=== PATIENT | female | born 1970 | race Caucasian/White ===

== ENCOUNTER 2016-10-27 15:01 | Inpatient (IN) | payer BC ==
[2016-10-27] MEDS ORDERED: NS 0.9% 1000 ML* 1,000 ML IV ONE (15:50)
--- NOTE | 2016-10-27 16:20 | RAD ---
INDICATION: Cyanosis and swelling after left fourth finger nail fell off. TECHNIQUE: 3 views of the left ring finger were obtained. FINDINGS: The bones are normal alignment. Joint spaces appear maintained. No fracture is seen. Soft tissue swelling at the distal left ring finger is radiographically apparent. IMPRESSION: SOFT TISSUE SWELLING INVOLVING THE DISTAL LEFT RING FINGER WITHOUT ACUTE UNDERLYING BONY ABNORMALITY.
[2016-10-27] MEDS ORDERED: Vancomycin(*) 1,000 MG in NS 0.9% 250 ML* 250 ML IVPB ONE (17:09)
[2016-10-27 17:10] LABS: Hematocrit 37 % (35-47); Hemoglobin 12.3 g/dl (12.0-16.0); Mean Corpuscular HGB Conc 33 g/dl (31-36); Mean Corpuscular Hemoglobin 29 pg (27-31); Mean Corpuscular Volume 88 fL (80-97); Mean Platelet Volume 9 um3 (7.4-10.4); Red Blood Count 4.19 10^6/ul (4.0-5.4); Red Cell Distribution Width 12 % (10.5-15); White Blood Count 13.1 10^3/ul (3.5-10.8)
[2016-10-27] MEDS ORDERED: Morphine INJ* 4 MG/ML 1 ML CARPUJECT IV ONE (17:23)
[2016-10-27 17:29] LABS: Albumin 3.7 g/dL (3.2-5.2); BUN/Creatinine Ratio 18.8 (8-20); Calcium 9.2 mg/dL (8.6-10.3); EGFR African American 180.7 (>60); EGFR Non-African American 140.5 (>60); Globulin 3.2 g/dL (2-4); Potassium 3.7 mmol/L (3.5-5.0); Total Bilirubin 0.5 mg/dL (0.2-1.0); Total Protein 6.9 g/dL (6.4-8.9)
[2016-10-27] MEDS ORDERED: Ciprofloxacin 400MG IVPREMIX(* 400 MG/200 ML BAG IVPB ONE (18:00)
--- NOTE | 2016-10-27 18:49 | ED ---
Seamus Rea Adam, scribed for Татьяна Singleton MD on 10/27/16 at 1525 . Upper Extremity Pain - HPI Summary HPI Summary: Pt is a 45 year old female presenting with swelling of her left ring finger. She was taking injections 4x daily to keep blood sugar up and she states that this caused her fingernail to fall off about 1 month ago. 3 days ago she states that the finger became swollen and pink around the nail bed. Over the past 2 days she has become unable to straighten the fingers of her left hand. She has diffuse pain in the hand but she states that she does not have any feeling in the affected finger due to neuroapthy. Yesterday she had an X-ray done at [facility] and had an infectious disease MD jono and swab. She was told to come to the ED today because yesterday's results came back concerning. PMHx of severe hypoglycemia s/p gastric bypass surgery. - History of Current Complaint Chief Complaint: EDExtremityUpper Stated Complaint: LT HAND SWELLING Hx Obtained From: Patient Onset/Duration: Started Days Ago, Atraumatic, Still Present Timing: Constant, Lasting Days Severity Initially: Mild Severity Currently: Moderate Pain Location: Finger - Left ring finger Aggravating Factor(s): Nothing Alleviating Factor(s): Nothing Associated Signs & Symptoms: Positive: Swelling, Numbness/Tingling - Allergies/Home Medications Allergies/Adverse Reactions: Allergies Allergy/AdvReac Type Severity Reaction Status Date / Time Amoxicillin [From Augmentin] Allergy Vomiting Verified 10/27/16 15:07 Clavulanic Acid Allergy Vomiting Verified 10/27/16 15:07 [From Augmentin] Codeine Allergy HALLUCINATIONS, Verified 10/27/16 15:07 VOMITING, FEVER Oxycodone Allergy Dizziness Verified 10/27/16 15:07 Sulfamethoxazole Allergy Hives Verified 10/27/16 15:07 w/Trimethoprim [From Septra] MRI CONTRAST Allergy RINGING IN Uncoded 10/27/16 15:07 EARS, DIFF BREATHING Home Medications: Home Medications Calcium Carbonate-Vitamin D [Calcium 600 + D] 1 tab PO QAM 10/27/16 [History Confirmed 10/27/16] DULoxetine DR CAP* [Cymbalta CAP*] 60 mg PO QAM 10/27/16 [History Confirmed ] Gabapentin CAP(*) [Neurontin 300 CAP(*)] 300 mg PO QAM 10/27/16 [History Confirmed 10/27/16] Gabapentin CAP(*) [Neurontin 300 CAP(*)] 900 mg PO QPM 10/27/16 [History Confirmed 10/27/16] Levothyroxine TAB* [Synthroid TAB*] 200 mcg PO DAILY 10/27/16 [History Confirmed 10/27/16] Omeprazole CAP* [PriLOSEC CAP*] 20 mg PO DAILY PRN 10/27/16 [History Confirmed 10/27/16] PMH/Surg Hx/FS Hx/Imm Hx Endocrine/Hematology History: Reports: Hx Thyroid Disease - HYPOTHYROID Denies: Hx Diabetes Cardiovascular History: Denies: Hx Congestive Heart Failure, Hx Hypertension, Hx Pacemaker/ICD, Other Cardiovascular Problems/Disorders Respiratory History: Reports: Hx Asthma - UNDER CONTROL, NO INHALER RECENTLY Denies: Other Respiratory Problems/Disorders GI History: Reports: Hx Gastroesophageal Reflux Disease - DIET CONTROLLED, TUMS PRN, Other GI Disorders - reccurent internal hernia History: Denies: Hx Renal Disease Sensory History: Denies: Hx Contacts or Glasses, Hx Hearing Aid Opthamlomology History: Denies: Hx Contacts or Glasses Neurological History: Reports: Other Neuro Impairments/Disorders - HX OF CHIARI MALFORMATION Psychiatric History: Denies: Hx Panic Disorder - Surgical History Surgery Procedure, Year, and Place: GASTRIC BYPASS, X2, POSTERIOR FOSSA DECOMPRESSION FRO CHIARI MALFORMATION, ULAR NERVE, CARPAL TUNNEL BILATERAL , BICEP TENDON/ROTATOR CUFF REPAIR,UTERINE ABLATION, TUBAL LIGATION Hx Anesthesia Reactions: No Infectious Disease History: No Infectious Disease History: Denies: Traveled Outside the [place] in Last 30 Days - Family History Known Family History: Positive: None - reviewed & noncontributory - Social History Occupation: Employed Full-time Lives: With Family - Alcohol Use: None Hx Substance Use: No Substance Use Type: Reports: None Hx Tobacco Use: No Smoking Status (MU): Never Smoked Tobacco Review of Systems Negative: Fever Positive: Edema - Left ring finger Positive: Numbness - Fingers of left hand (chronic neuropathy) All Other Systems Reviewed And Are Negative: Yes Physical Exam Triage Information Reviewed: Yes Vital Signs On Initial Exam: Initial Vitals Temp Pulse Resp BP Pulse Ox 98.4 F 76 16 112/60 100 10/27/16 15:07 10/27/16 15:07 10/27/16 15:07 10/27/16 15:07 10/27/16 15:07 Vital Signs Reviewed: Yes Appearance: Positive: Well-Appearing, No Pain Distress Skin: Positive: Warm, Skin Color Reflects Adequate Perfusion, Dry Eyes: Positive: EOMI, SELWYN ENT: Positive: Pharynx normal, TMs normal Neck: Positive: Supple, Nontender Respiratory/Lung Sounds: Positive: Clear to Auscultation, Breath Sounds Present. Negative: Rales, Rhonchi, Wheezes Cardiovascular: Positive: RRR. Negative: Murmur, Rub Abdomen Description: Positive: Nontender, Soft. Negative: Distended, Guarding Bowel Sounds: Positive: Present Musculoskeletal: Positive: Other - Left ring finger - "sausage finger" Neurological: Positive: Sensory/Motor Intact, Alert, Oriented to Person Place, Time, CN Intact II-III Psychiatric: Positive: Affect/Mood Appropriate Diagnostics - Vital Signs Vital Signs Temp Pulse Resp BP Pulse Ox 10/27/16 15:07 98.4 F 76 16 112/60 100 - Laboratory Lab Results: Lab Results 10/27/16 10/27/16 10/27/16 Range/Units 16:55 16:55 16:55 WBC 13.1 H (3.5-10.8) 10^3/ul RBC 4.19 (4.0-5.4) 10^6/ul Hgb 12.3 (12.0-16.0) g/dl Hct 37 (35-47) % MCV 88 (80-97) fL MCH 29 (27-31) pg MCHC 33 (31-36) g/dl RDW 12 (10.5-15) % Plt Count 217 (150-450) 10^3/ul MPV 9 (7.4-10.4) um3 Neut % (Auto) 83.9 H (38-83) % Lymph % (Auto) 8.3 L (25-47) % [place] % (Auto) 6.8 (1-9) % Eos % (Auto) 0.4 (0-6) % Baso % (Auto) 0.6 (0-2) % Absolute Neuts (auto) 11.0 H (1.5-7.7) 10^3/ul Absolute Lymphs (auto) 1.1 (1.0-4.8) 10^3/ul Absolute Monos (auto) 0.9 H (0-0.8) 10^3/ul Absolute Eos (auto) 0 (0-0.6) 10^3/ul Absolute Basos (auto) 0.1 (0-0.2) 10^3/ul Absolute Nucleated RBC 0.01 10^3/ul Nucleated RBC % 0 Sodium 138 (133-145) mmol/L Potassium 3.7 (3.5-5.0) mmol/L Chloride 107 (101-111) mmol/L Carbon Dioxide 28 (22-32) mmol/L Anion Gap 3 (2-11) mmol/L BUN 9 (6-24) mg/dL Creatinine 0.48 L (0.51-0.95) mg/dL Est GFR ( Amer) 180.7 (>60) Est GFR (Non-Af Amer) 140.5 (>60) BUN/Creatinine Ratio 18.8 (8-20) Glucose 92 (70-100) mg/dL Lactic Acid 0.6 (0.5-2.0) mmol/L Calcium 9.2 (8.6-10.3) mg/dL Total Bilirubin 0.50 (0.2-1.0) mg/dL AST 19 (13-39) U/L ALT 15 (7-52) U/L Alkaline Phosphatase 43 (34-104) U/L Total Protein 6.9 (6.4-8.9) g/dL Albumin 3.7 (3.2-5.2) g/dL Globulin 3.2 (2-4) g/dL Albumin/Globulin Ratio 1.2 (1-3) Result Diagrams: 10/27/16 16:55 10/27/16 16:55 Lab Statement: Any lab studies that have been ordered have been reviewed, and results considered in the medical decision making process. - Radiology LEFT RING FINGER X-RAY Radiology Interpretation Completed By: Radiologist - IMPRESSION: SOFT TISSUE SWELLING INVOLVING THE DISTAL LEFT RING FINGER WITHOUT ACUTE UNDERLYING BONY ABNORMALITY. Course/Dx - Course Course Of Treatment: 45 yo with classic flexor tenosynovitis of left ring finger. Xray shows osteo of distal phalanx, IV abx started in ED vanco and cipro. Pt seen by orthopedist and admitted by hospitalist - Diagnoses Provider Diagnoses: Flexor tenosynovitis of finger - Physician Notifications Discussed Care Of Patient With: Hospitalist at 16:43. Discharge - Discharge Plan Condition: Stable Disposition: ADMITTED TO [facility] The documentation as recorded by the Seamus valdez Adam accurately reflects the service I personally performed and the decisions made by me, Татьяна Singleton MD.
[2016-10-27] MEDS ORDERED: Omeprazole CAP* 20 MG PO PRN (18:52)
[2016-10-27] MEDS ORDERED: Vancomycin per Pharmacy* NOTE FOLLOW UP PRN (19:43)
--- NOTE | 2016-10-27 21:26 | CONS ---
ORTHOPEDIC CONSULTATION: DATE OF CONSULT: 10/27/16 CHIEF COMPLAINT: Left ring finger pain. HISTORY OF PRESENT ILLNESS: Ms. Mosquera is a 45-year-old right hand dominant female with a history of Arnold-Chiari malformation and upper extremity neuropathy. She reports she has decreased sensation in her fingers and hand. One week ago she noticed abrasion or open wound along the tip of her ring finger of her left hand. Over the last week, this has become increasingly red and painful. She reports although she has decreased sensation, she does have 4/ 10 pain in the left ring finger with difficulty extending it. Any attempt to move the finger increases her pain. Small amount of pus was expressed at some point over the last week. She reports she saw an infectious disease doctor in [place] who attempted to I and D the tip of the finger, but there was no purulence expressed. The patient has been taking oral antibiotics, but does not know the type. She has had low-grade fever around 100. She reports aching in her hips and other joints as well. 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 PAST SURGICAL HISTORY: Posterior fossa decompression of the cervical spine for Arnold-Chiari malformation, tubal ligation, uterine ablation, carpal tunnel release, and ulnar nerve transposition, 2 C-sections, Errol-en-Y gastric bypass in 2011. CURRENT MEDICATIONS: 1. Levothyroxine. 2. Vitamin. 3. Sublingual B12. 4. Calcium and vitamin D. ALLERGIES: SEASONAL allergies, CATS, and DOGS. CODEINE, AUGMENTIN, MRI CONTRAST, PERCOCET, and OXYCODONE. FAMILY HISTORY: The patient denies. SOCIAL HISTORY: The patient lives with her , works as a ready mix truck driver. No tobacco, alcohol, or recreational drug use. REVIEW OF SYSTEMS: The 14 systems were reviewed with the patient today, positive for the left hand pain and erythema, positive for recent low-grade fevers, positive for some fatigue, and bilateral hip pain. Negative for chest pain, shortness of breath, nausea, vomiting, headache or dizziness. Otherwise, the patient reports review of systems is negative or not relevant. PHYSICAL EXAM: Vitals: Temperature 98.4, pulse 76, blood pressure 112/60. General: The patient is a well-nourished female in no acute distress. Alert and oriented x3. Please mood and appropriate affect. Left upper extremity: The patient's ring finger is swollen and erythematous up to the MCP joint. The finger is flexed. She cannot fully extend it. At the tip there is ecchymotic dark blue/black up to the DIP joint, unclear if this is necrosis or subcutaneous bleeding. No obvious purulence or drainage. She reports baseline decreased sensation to light touch. Less than 3 seconds capillary refill near the tip. Greater than 3 seconds capillary refill right at the tip of the finger. Proximally she has pain-free motion at the wrist with 2+ palpable radial pulse. DIAGNOSTIC STUDIES/LAB DATA: On 10/27/16 shows white blood cells elevated at 13.1 with a left shift neutrophils, hematocrit 37, platelets 217. Sodium 138, potassium 3.7, chloride 107, BUN and creatinine 9 and 0.48. RADIOGRAPHS: I have reviewed the left hand radiograph, which shows some abnormality of the distal phalanx bone consistent with possible osteomyelitis. No obvious fracture or dislocation. ASSESSMENT AND PLAN: Ms. Mosquera is a 45-year-old right-hand dominant female with bilaterally upper extremity neuropathy secondary to Arnold-Chiari malformation. She has 1 week of increasingly severe infection in the left ring finger up to the MCP joint today. Her tip appears to be necrotic. At this point, the patient is admitted to Medicine and should certainly have broad- spectrum IV antibiotics. We will consider an MRI of that finger to more fully elucidate the extent of fluid collections and soft tissue/bone involvement. The patient can have warm soaks twice a day for the finger. I have contacted our hand specialist, Dr. Becki Leonard, who agrees to see the patient on 10/28/16. I discussed with the patient today that she may need surgical drainage of the infection and she may have necrosis of the finger tip requiring a finger tip amputation. The patient understands this. She should have p.r.n. analgesia. Thank you for this orthopedic consultation. [id number]/[facility] #: [id number] MTDD
[2016-10-27] MEDS: Cefepime(*) 2 GM in NS 0.9% 50 ML* 50 ML IVPB SCH (21:36)
[2016-10-27] MEDS ORDERED: HYDROcodone/ACETAMIN 5-325 MG* 1 TAB PO PRN ×2 (21:50→21:51)
--- NOTE | 2016-10-27 22:17 | HP ---
HISTORY AND PHYSICAL: DATE OF ADMISSION: 10/27/16 PRIMARY CARE PROVIDER: MARLON Bah. ATTENDING PHYSICIAN: Scott Flood MD *(dictated by Shaista Camp NP). CHIEF COMPLAINT: Left hand swelling. HISTORY OF PRESENT ILLNESS: Ms. Mosquera is a 45-year-old female with a past medical history significant for Arnold-Chiari malformation with neuropathy, Kanchan's thyroiditis, hypoglycemia and restless leg syndrome who presented to the emergency room with complaints of left ring finger swelling. The patient reports that in the past she has been taking injections 4 times a day to keep her blood sugars elevated due to hypoglycemia and this had started to cause her fingernails to fall off and be brittle. The patient reports that approximately 1 month ago she lost her left ring fingernail. The patient states that approximately a week ago, she "pulled a hangnail" from near where the nail had fallen off on her left ring finger. The patient then noticed approximately 3 days ago that her finger had become swollen and slightly pink around the nail bed. The patient reports that over the last 2 days she has been unable to straighten her fingers on her left hand. The patient reports some discomfort in the left hand and has noticed some redness kind of going up her arm and on to the backside of her hand. The patient reports a decreased feeling in her affected finger due to neuropathy from her Arnold-Chiari. The patient reports being seen yesterday by her primary care provider who started her on Keflex and had her see infectious disease specialist in [place]. The infectious disease specialist at [place] attempted to aspirate some fluid and started her on doxycycline. The patient reports taking 2 doses of doxycycline and Keflex since she was started on it. The patient also reports having an x- ray done yesterday at [facility]. The patient returned to her primary care provider today who sent her to see a hand specialist to remove her rings as they were unable to be removed. Her rings were removed and the patient saw her primary care provider again who sent her to [facility] Emergency Room for further evaluation. The patient was then sent from [facility] to [facility] to be able to be seen by a hand specialist. The patient reports low-grade fevers, reporting her temperature as being 99 to 100.6. The patient reports intermittent chills over the weekend. The patient notes baseline numbness and tingling with decreased sensation in her bilateral extremities, worse in the left than the right. The patient denies any chest pain, shortness of breath, nausea, vomiting, diarrhea, abdominal pain, urinary symptoms. While in the [facility] Emergency Room, the patient received IV vancomycin and ciprofloxacin. The patient received 1 L of normal saline. She received morphine for pain. The patient was seen by Dr. Bailey with Orthopedics. The patient had a left ring finger x-ray showing a soft tissue swelling involving the distal left ring finger without acute underlying bony abnormalities. Based off the patient's presentation, the hospitalists were asked to evaluate the patient for admission. PAST MEDICAL HISTORY: 1. Kanchan's thyroiditis. 2. Arnold-Chiari malformation with neuropathy. 3. Hypoglycemia. 4. Restless leg syndrome. 5. Gastroesophageal reflux disease. PAST SURGICAL HISTORY: 1. Status post left ulnar nerve decompression. 2. Status post internal hernia repairs x2. 3. Status post carpal tunnel repair bilateral. 4. Status post 2 sections. 5. Status post posterior fossa decompression of the C-spine. 6. Status post tubal ligation in 2008. 7. Status post uterine ablation. 8. Status post Errol-en-Y gastric bypass in 2011. HOME MEDICATIONS: Include: 1. Cymbalta 60 mg oral daily. 2. Glucosamine and chondroitin 1 tablet oral daily. 3. Calcium carbonate/vitamin D 600 plus D 1 tablet oral daily. 4. Neurontin 300 mg oral every morning. 5. Neurontin 90 mg oral every evening. 6. Vitamin B12 at 500 mcg sublingual daily. 7. Omeprazole 20 mg oral daily as needed for indigestion. 8. Levothyroxine 200 mcg oral daily. 9. Multivitamin 1 tablet oral daily. 10. Acidophilus 1 tablet oral daily. FAMILY HISTORY: The patient's father had a history of myocardial infarction and diabetes mellitus. The patient has a sister with a history of diabetes mellitus. The patient's mother passed of lung cancer that had metastasized to the bones. SOCIAL HISTORY: The patient denies tobacco, alcohol or recreational drug use. She works as a billing spec. She is and has 2 children. Her surrogate decision maker will be her , Lance Mosquera, in the event that she is unable to make decisions for herself. REVIEW OF SYSTEMS: I performed a 14-point review of systems. All the pertinent positives and negatives are mentioned in the history of present illness. The remaining review of systems are negative. PHYSICAL EXAMINATION GENERAL APPEARANCE: The patient is alert, pleasant, appears to be in no acute distress. VITAL SIGNS: Temperature 98.4, heart rate 76, respiratory rate 16, O2 sat 100% on room air, blood pressure 112/60. HEENT: Normocephalic, atraumatic. Pupils are equal, round, and reactive to light. Extraocular movements are intact. RESPIRATORY: There is no accessory muscle use and the lungs are clear to auscultation bilateral. CARDIOVASCULAR: Regular rate and rhythm. S1, S2 present. There are no murmurs , rubs, or gallops heard. ABDOMEN: Soft, nontender, nondistended. There are bowel sounds present x4. EXTREMITIES: There is no lower extremity edema. DP and PT pulses are 2+ and symmetric. The left ring finger has a large amount of swelling with erythema, and the end of the left ring finger has some areas that appear to be necrotic. There is also some swelling and erythema to the dorsal aspect of the left hand. MUSCULOSKELETAL: There is no clubbing or cyanosis noted. The patient exhibits good strength in all extremities. NEUROLOGICAL: The patient is alert and oriented x4. Cranial nerves II through XII are grossly intact. PSYCHOLOGIC: The patient is calm and cooperative. SKIN: Again the patient has erythema and swelling to her left ring finger with some area that appears to be necrotic tissue at the end of her finger. DIAGNOSTIC STUDIES/LABORATORY DATA: Sodium 138, potassium 3.7, chloride 107, CO2 of 28, BUN 9, creatinine 0.48, glucose 92. White blood cell count 13.1, hemoglobin 12.3, hematocrit 37, and platelet count 217. Left ring finger x-ray from today. Radiologist's impression: Soft tissue swelling involving the distal left ring finger without acute underlying bony abnormality. IMPRESSION: Ms. Mosquera is a 45-year-old female with past medical history significant for Arnold-Chiari malformation with neuropathy, Kanchan's thyroiditis, hypoglycemia and restless leg syndrome who presented to the emergency room with left ring finger swelling and erythema. She will be admitted as an inpatient for flexor tenosynovitis of the left ring finger. ASSESSMENT: 1. Tenosynovitis. The patient has been seen in consultation by Orthopedics. She will be seen again by Dr. Leonard in the morning. For now, the patient will be started on vancomycin and cefepime. The patient has had blood cultures collected. We will monitor her CBC and leukocytosis. At this point, the patient is afebrile. I will also ask Infectious Disease to see the patient in the a.m. She will have warm water soaks of the left hand twice daily. Dr. Leonard will see the patient in the morning and evaluate the need for incision and drainage vs amputation. 2. Arnold-Chiari malformation with neuropathy. The patient will be continued on her home pain regimen including Cymbalta and Neurontin. 3. Kanchan's thyroiditis. The patient will be continued on her levothyroxine. 4. Fluids, electrolytes and nutrition: The patient will be on a regular diet. 5. Code status: Full code. 6. DVT prophylaxis: The patient is at a low risk and will be encouraged to ambulate. 7. Disposition: Inpatient. TIME SPENT: The time for this admission was 60 minutes, and 35 minutes was spent [id number] with the patient discussing medications, past medical history , and the events leading up to her arrival today and performing a physical examination. The case has been reviewed with the attending, Dr. Flood, who agrees with the plan of care. Reviewed by AMANDA ZENDEJAS 10/28/162000 CC: MARLON Bah * [id number]/[facility] #: [id number] MTDD
[2016-10-28] MEDS ORDERED: Ondansetron INJ* 2 MG/ML VIAL IV PRN (00:04)
[2016-10-28] MEDS ORDERED: Ondansetron INJ* 2 MG/ML VIAL ONE (00:15)
[2016-10-28] MEDS: Vancomycin(*) 1,000 MG in NS 0.9% 250 ML* 250 ML IVPB SCH ×3 (03:52→21:37)
[2016-10-28] MEDS: Levothyroxine TAB* 100 MCG TAB PO SCH (05:34)
[2016-10-28] MEDS: Acetaminophen TAB* 325 MG PO PRN ×3 (05:37→18:34)
[2016-10-28 07:10] LABS: Hematocrit 36 % (35-47); Mean Corpuscular HGB Conc 33 g/dl (31-36); Mean Corpuscular Hemoglobin 30 pg (27-31); Mean Corpuscular Volume 90 fL (80-97); Mean Platelet Volume 9 um3 (7.4-10.4); Red Blood Count 4.02 10^6/ul (4.0-5.4); Red Cell Distribution Width 12 % (10.5-15); White Blood Count 10.7 10^3/ul (3.5-10.8)
--- NOTE | 2016-10-28 08:03 | PN ---
Progress Note - Progress Note SOAP: Subjective: Pt. reports finger is largely unchanged, minimal pain secondary to baseline neuropathy. Objective: LUE - ring finger erythema and swollen to MCP joint. No visible streaking up palm or forearm. pain with extension of finger. distal tip appears to be necrotic. Vital Signs: Temp Pulse Resp BP Pulse Ox 98.3 F 58 16 82/41 100 10/28/16 07:18 10/28/16 07:18 10/28/16 07:18 10/28/16 07:18 10/28/16 07:18 Laboratory Results - last 24 hr 10/27/16 10/27/16 10/27/16 16:55 16:55 16:55 WBC 13.1 H RBC 4.19 Hgb 12.3 Hct 37 MCV 88 MCH 29 MCHC 33 RDW 12 Plt Count 217 MPV 9 Neut % (Auto) 83.9 H Lymph % (Auto) 8.3 L [place] % (Auto) 6.8 Eos % (Auto) 0.4 Baso % (Auto) 0.6 Absolute Neuts (auto) 11.0 H Absolute Lymphs (auto) 1.1 Absolute Monos (auto) 0.9 H Absolute Eos (auto) 0 Absolute Basos (auto) 0.1 Absolute Nucleated RBC 0.01 Nucleated RBC % 0 Sodium 138 Potassium 3.7 Chloride 107 Carbon Dioxide 28 Anion Gap 3 BUN 9 Creatinine 0.48 L Est GFR ( Amer) 180.7 Est GFR (Non-Af Amer) 140.5 BUN/Creatinine Ratio 18.8 Glucose 92 POC Glucose (mg/dL) Lactic Acid 0.6 Calcium 9.2 Total Bilirubin 0.50 AST 19 ALT 15 Alkaline Phosphatase 43 Total Protein 6.9 Albumin 3.7 Globulin 3.2 Albumin/Globulin Ratio 1.2 10/27/16 10/28/16 22:07 06:40 WBC 10.7 RBC 4.02 Hgb 12.0 Hct 36 MCV 90 MCH 30 MCHC 33 RDW 12 Plt Count 208 MPV 9 Neut % (Auto) 80.5 Lymph % (Auto) 11.0 L [place] % (Auto) 7.1 Eos % (Auto) 1.1 Baso % (Auto) 0.3 Absolute Neuts (auto) 8.6 H Absolute Lymphs (auto) 1.2 Absolute Monos (auto) 0.8 Absolute Eos (auto) 0.1 Absolute Basos (auto) 0 Absolute Nucleated RBC 0 Nucleated RBC % 0 Sodium Potassium Chloride Carbon Dioxide Anion Gap BUN Creatinine Est GFR ( Amer) Est GFR (Non-Af Amer) BUN/Creatinine Ratio Glucose POC Glucose (mg/dL) 127 H Lactic Acid Calcium Total Bilirubin AST ALT Alkaline Phosphatase Total Protein Albumin Globulin Albumin/Globulin Ratio Assessment: 45 yo F with one week of worsening L ring finger infection. Plan: Cont. IV abx - cefipime and vanco MRI ordered this AM warm soaks Dr. Leonard to see the patient today, will decide on surgical I and D +/- amputation
[2016-10-28] MEDS: Calcium/Vitamin D TAB 250/125* TAB PO SCH (08:12)
[2016-10-28] MEDS: Cefepime(*) 2 GM in NS 0.9% 50 ML* 50 ML IVPB SCH ×2 (08:12→20:16)
[2016-10-28] MEDS: Multivitamins/Minerals TAB PO SCH (08:13)
[2016-10-28] MEDS: Gabapentin CAP(*) 300 MG PO SCH ×2 (08:13→18:34)
[2016-10-28] MEDS: Cyanocobalamin TAB* 500 MCG PO SCH (08:14)
[2016-10-28] MEDS: DULoxetine DR CAP* 60 MG CAP.DR PO SCH (08:25)
--- NOTE | 2016-10-28 12:01 | RAD ---
Indication: Chronic distal tip of LEFT fourth finger. Assess for osteomyelitis/extent of necrosis. Comparison: October 27, 2016 radiographs. Technique: Noncontrast MRI LEFT fourth finger with inclusion of the adjacent fingers in the [id number]. [employer] 1.5 Caron [id number] with GEM suite. Report: Edematous nailbed and subjacent 1.1 cm AP by 1.3 cm transverse by 2.0 cm cephalocaudal sharply circumscribed T2 hyperintense T1 hypointense fluid collection intervening between the edematous nail bed and the surface of the distal phalanx from the base through the tip. More infiltrative pattern of fluid extends dorsal to the extensor tendons at the level of the middle phalanx. Suggestion of potential ulceration of the soft tissues at the dorsal distal margin. Marked diffuse edema of the fourth finger. No additional loculated fluid collection evident. Small volume of fluid within the extensor and flexor tendon sheaths. T2 hyperintense marrow edema within the middle and distal phalanges. Corresponding decrease in T1 marrow hyperintensity at the distal phalanx but not the middle phalanx. Suggestion of osseous erosions at the tuft of the distal phalanx. IMPRESSION: The constellation of findings is consistent with osteomyelitis at the fourth distal phalanx. Less specific signal change at the middle phalanx which may reflect reactive edema or early osteomyelitis. Extensive findings of cellulitis with loculated probable abscess collection over the dorsum of the distal finger at level of the distal phalanx.
--- NOTE | 2016-10-28 13:44 | CONS ---
CONSULTATION REPORT: DATE OF CONSULT: 10/28/16 CHIEF COMPLAINT: Swelling, redness, and pain of the left ring finger. 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 She has gradually had marked increase in the swelling, erythema, pain, and some necrosis at the tip of the finger that has extended proximal to the DIP flexion crease. She had an MRI done, which showed osteomyelitis of the distal phalanx and fluid in the flexor tendon sheath. She does have a history of skin changes in the tips of all of her fingers. She does not recall any specific injury. PHYSICAL EXAMINATION: On physical exam, she is a healthy-appearing very pleasant female, in mild distress at rest. She has some moderate swelling across the dorsum in the palmar surface of her hand, marked erythema extending on the ring finger only, marked swelling of the ring finger as well as tenderness along the flexor tendon sheath, necrosis with blisters extending from the tip of the finger to just proximal to the DIP flexion crease. She has active flexion and extension of the finger. IMPRESSION: Osteomyelitis of the left ring finger with flexor tenosynovitis. PLAN/RECOMMENDATIONS: Irrigation and debridement and partial amputation of the left ring finger. The patient agrees to proceed. She will be n.p.o. and we will take her to the operating room later this afternoon. [id number]/[facility] #: [id number] MTDD
--- NOTE | 2016-10-28 14:33 | PN ---
Subjective Date of Service: 10/28/16 Interval History: Patient seen and examined at bedside. Pt states that she has a dull headache and pain in her left hand. Denies shortness of breath, chest discomfort, N/V/D. Pt reports feeling intermittent chills and fevers. Pt feels that her finger is more swollen today, but the redness in her left hand is improved. Family History: Unchanged from Admission Social History: Unchanged from Admission Past Medical History: Unchanged from Admission Objective Active Medications: Acetaminophen (Tylenol Tab*) 650 mg PO Q4H PRN Reason: FEVER/PAIN Hydrocodone Bitart/Acetaminophen (Benton 5-325 Tab*) 1 tab PO Q4H PRN Reason: PAIN - MILD TO MODERATE Hydrocodone Bitart/Acetaminophen (Benton 5-325 Tab*) 2 tab PO Q4H PRN Reason: PAIN - MODERATE TO SEVERE Calcium/Vitamin D (Oscal D Tab 250/125*) 2 tab PO QAM OMAR Cyanocobalamin (Vitamin B12 Tab*) 500 mcg PO DAILY OMAR Duloxetine HCl (Cymbalta Cap*) 60 mg PO QAM OMAR Gabapentin (Neurontin Cap(*)) 300 mg PO QAM OMAR Gabapentin (Neurontin Cap(*)) 900 mg PO QPM OMAR Cefepime HCl 2 gm/ Sodium (Chloride) 50 mls @ 100 mls/hr IVPB Q12H OMAR Vancomycin HCl 1,000 mg/ (Sodium Chloride) 250 mls @ 166.667 mls/hr IVPB Q8H OMAR Reason: Protocol Lactated Ringer's (Lactated Ringers 1000 Ml Bag*) 1,000 mls @ 80 mls/hr IV PER RATE OMAR Levothyroxine Sodium (Synthroid Tab*) 200 mcg PO 0600 OMAR Multivitamins/Minerals (Theragran/Minerals Tab*) 1 tab PO DAILY OMAR Omeprazole (Prilosec Cap*) 20 mg PO DAILY PRN Reason: INDIGESTION Ondansetron HCl (Zofran Inj*) 4 mg IV Q4H PRN Reason: NAUSEA Pharmacy Consult (Vancomycin Per Pharmacy*) 1 note FOLLOW UP . PRN Pharmacy Profile Note (Vancomycin Trough Check) 1 note FOLLOW UP 1930 ONE Vital Signs 10/27/16 10/27/16 10/27/16 18:30 18:43 19:00 Temperature Pulse Rate 65 68 Respiratory 18 Rate Blood Pressure 114/70 116/60 (mmHg) O2 Sat by Pulse 98 99 Oximetry 10/27/16 10/27/16 10/27/16 19:30 20:00 20:01 Temperature Pulse Rate 75 72 74 Respiratory Rate Blood Pressure 107/64 107/57 (mmHg) O2 Sat by Pulse 99 100 99 Oximetry 10/27/16 10/27/16 10/27/16 20:30 21:13 21:19 Temperature 99.1 F 100.3 F Pulse Rate 73 90 Respiratory 16 Rate Blood Pressure 109/64 104/54 (mmHg) O2 Sat by Pulse 100 100 Oximetry 10/27/16 10/27/16 10/27/16 21:40 21:43 23:03 Temperature 99.1 F Pulse Rate 90 Respiratory 16 17 16 Rate Blood Pressure 104/54 (mmHg) O2 Sat by Pulse 100 Oximetry 10/27/16 10/28/16 10/28/16 23:45 01:03 03:06 Temperature 98.4 F 97.9 F Pulse Rate 77 69 Respiratory 18 16 14 Rate Blood Pressure 102/51 97/53 (mmHg) O2 Sat by Pulse 97 99 Oximetry 10/28/16 10/28/16 10/28/16 07:18 08:05 08:13 Temperature 98.3 F Pulse Rate 58 Respiratory 16 16 16 Rate Blood Pressure 82/41 (mmHg) O2 Sat by Pulse 100 Oximetry 10/28/16 10/28/16 10:13 11:55 Temperature 97.9 F Pulse Rate 70 Respiratory 16 16 Rate Blood Pressure 116/59 (mmHg) O2 Sat by Pulse 100 Oximetry Oxygen Devices in Use Now: None Appearance: NAD, laying in bed Eyes: No Scleral Icterus, PERRLA Ears/Nose/Mouth/Throat: NL Teeth, Lips, Gums, Mucous Membranes Moist Neck: NL Appearance and Movements; NL JVP, Trachea Midline Respiratory: Symmetrical Chest Expansion and Respiratory Effort, Clear to Auscultation Cardiovascular: NL Sounds; No Murmurs; No JVD, RRR Abdominal: NL Sounds; No Tenderness; No Distention Extremities: No Edema - in LE Skin: - - Left ring finger with swelling and erythma, there is necrosis to the finger tip. Some erythema and swelling on the dorsal aspect of the hand Neurological: Alert and Oriented x 3, NL Muscle Strength and Tone Lines/Tubes/Other Access: Clean, Dry and Intact Peripheral IV - site benign Nutrition: Taking PO's Result Diagrams: 10/28/16 06:40 10/27/16 16:55 Assess/Plan/Problems-Billing Assessment: Ms. Mosquera is a 45 yo female with PMH significant for Arnold-Chiari malformation with neuropathy, Kanchan's thyroiditis, hypoglycemia and RLS who presented to the emergency room with left ring finger swelling and erythema. - Patient Problems (1) Osteomyelitis of finger of left hand Code(s): M86.9 - OSTEOMYELITIS, UNSPECIFIED SNOMED Code(s): 12321585 Comment: - Osteomyelitis with tenosynovitis of the left ring finger - MRI shows Osteomyelitits - Leukocytosis resolved. Afebrile with the exception of a low grade fever 100.3 last night. - Plan for sugery later today with a possible amputation - Continue Vanco and Cefepime - ID consult (2) History of Chiari malformation Code(s): Z86.69 - PERSONAL HISTORY OF DIS OF THE NERVOUS SYS AND SENSE ORGANS SNOMED Code(s): 751699363 Comment: - S/P decompression - Pt has UE neuropathy and hand contractures (3) History of Errol-en-Y gastric bypass Code(s): Z98.84 - BARIATRIC SURGERY STATUS SNOMED Code(s): 929630781 Comment: - 2011 - Dr. Matos - Pt with hypoglycemia after gastric bypass - Pt monitors glucose with continuous monitor (4) Hx of Kanchan thyroiditis Code(s): Z86.39 - PERSONAL HISTORY OF ENDO, NUTRITIONAL AND METABOLIC DISEASE SNOMED Code(s): 240435642 Comment: - with hypothyroidism - Continue levothyroxine (5) DVT prophylaxis Code(s): ZRB5955 - SNOMED Code(s): 648804208 (6) Full code status Code(s): Z78.9 - OTHER SPECIFIED HEALTH STATUS SNOMED Code(s): 561242750 Status and Disposition: Inpatient. Plan for surgery later today. Discharge to home when medically stable. Will need manager intermediate IV ABX.
--- NOTE | 2016-10-28 14:42 | CONS ---
CONSULTATION REPORT: DATE OF CONSULTATION: 10/28/16. REQUESTING PHYSICIAN: Shaista Samaniego NP. CONSULTING SERVICE: Infectious Disease. REASON FOR CONSULTATION: Left fourth finger infection. IMPRESSION: 1. Left fourth finger diffuse edema and basically a sausage digit in the setting of underlying claw deformities and peripheral neuropathy with callus at the tip of the fingers, necrosis, cellulitis, and suppurative tenosynovitis with probable abscess and acute osteomyelitis, usual culprit is Staph aureus in rapidly progressive infections like this 2. Arnold-Chiari malformation with decompression and resulting peripheral neuropathy and deformities of the hands as noted above. 3. Thyroiditis. 4. Allergies to AMOXICILLIN and BACTRIM, both caused hives. RECOMMENDATIONS: 1. Agree with vancomycin, goal trough 15 and 20 and cefepime 2 g every 12 hours. We are waiting debridement, which will hopefully provide more cultured data. She will likely need a long course of IV antibiotics, duration of which will depend on findings at the time of surgery. HISTORY OF PRESENT ILLNESS: This is a 45-year-old woman with a Arnold-Chiari malformation and peripheral neuropathy, with a left fourth finger infection. She has some claw like deformities of the fingers at baseline and then noticed about a month ago a hangnail, which she removed and an area of irritation there , which over the last week or so progressed to diffuse redness, swelling, and ache in the left fourth finger. She saw Dr. Tong as an outpatient and an attempt to aspirate fluid apparently did not yield too much. She was put on doxycycline and Keflex by her PCP. She had a couple of doses of those and then because of rapid progression of her symptoms yesterday, she was directed to the ER at [place], transferred here, seen by Dr. Bailey, had an x-ray that showed no bony changes, just diffuse soft tissue edema. She is going to have an MRI today and see Dr. Leonard. Antibiotics were started overnight. She has had no fever here. She did have chills and anorexia at home. Has not had infection like this in the past. PAST MEDICAL HISTORY: 1. Arnold-Chiari malformation status post decompression with resulting peripheral neuropathy and deformity of the bilateral hands. 2. Kanchan's thyroiditis. 3. Hypoglycemia. 4. Restless leg syndrome. 5. Gastroesophageal reflux disease. 6. Status post left ulnar nerve decompression. 7. Status post internal hernia repair x2. 8. Status post bilateral carpal tunnel release. 9. Status post x2. 10. Status post tubal ligation. 11. Status post uterine ablation. 12. Status post Errol-en-Y gastric bypass 2011. ALLERGIES: 1. Bactrim and amoxicillin, both caused hives. She has tolerated other penicillins and tolerating cephalosporins. 2. Codeine. 3. Oxycodone. MEDICATIONS: 1. Tylenol. 2. Calcium and vitamin D. 3. Vitamin B12. 4. Duloxetine. 5. Gabapentin. 6. Vicodin. 7. Levothyroxine. 8. Cefepime 2 g IV 12 hours. 9. Multivitamin. 10. Omeprazole. 11. Zofran. 12. Vancomycin 1 g every 8 hours. 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 She has no travel or sick contacts. FAMILY HISTORY: No recurrent infections. REVIEW OF SYSTEMS: All negative except as noted above. PHYSICAL EXAMINATION: Vital Signs: Temperature 37, heart rate 60, respirations 16, blood pressure 90/40, O2 sat 100% on room air. General: In general, she is not in distress, not diaphoretic. Neurologic: She is awake and oriented x3. Follows all commands and moves all extremities. Decreased sensation to light touch in the bilateral hands. Neck: Supple without nuchal rigidity. There is no visible or palpable regional lymphadenopathy. HEENT: There is no conjunctival hemorrhage. Oropharynx is clear. Heart: Regular rate and rhythm without murmurs, rubs, or gallops. Lungs: Clear to auscultation bilaterally. Abdomen: Soft, nontender, nondistended without hepatosplenomegaly. Skin: There is no splinter hemorrhage or rash. Musculoskeletal: There is no spine tenderness to palpation. There is flexion deformities of all fingers and decreased sensation to light touch in bilateral hands. The left fourth finger is a sausage digit with diffuse edema, erythema, the tip has an eschar and associated blackish discoloration of the skin under it for about 2 to 3 mm. There is tenderness to palpation, there is no crepitus. There is decreased range of motion. DIAGNOSTIC STUDIES/LABORATORY DATA: White blood cell count 10, hemoglobin 12, platelets 208, creatinine 0.5. Please see impressions and recommendations outlined above. Thanks for asking me to see Ms. Retanaving in consultation. [id number]/[facility] #: [id number] [facility]
[2016-10-28] MEDS ORDERED: Lidocaine 2% PF* 10 ML AMP ONE (16:24)
[2016-10-28] MEDS ORDERED: Bupivacaine 0.5% SDV PF* 30 ML VIAL ONE (16:24)
[2016-10-28] MEDS ORDERED: Midazolam* 1 MG/ML 5 ML VIAL (5 MG) ONE (16:38)
[2016-10-28] MEDS ORDERED: fentaNYL* 50 MCG/ML 2 ML VIAL (100 MCG VIAL) ONE (16:46)
[2016-10-28] MEDS ORDERED: Lidocaine 1% INJ* 10 MG/ML 30 ML SDV ONE (16:53)
[2016-10-28] MEDS ORDERED: Vancomycin Trough Check NOTE FOLLOW UP ONE (19:30)
[2016-10-28] MEDS ORDERED: Vancomycin(*) 1,250 MG in NS 0.9% 250 ML* 250 ML IVPB SCH (22:02)
--- NOTE | 2016-10-29 01:21 | OP ---
DATE OF OPERATION: 10/28/16 - ROOM #343 DATE OF : 72 SURGEON: Becki Leonard MD LICENSED OPTICIAN: MARLON Moise ANESTHESIOLOGIST: Delbert Shelton MD ANESTHESIA: Local MAC. PRE-OP DIAGNOSIS: Osteomyelitis of the left ring finger. POST-OP DIAGNOSIS: Osteomyelitis of the left ring finger. OPERATIVE PROCEDURE: 1. Left ring finger I and D and partial amputation. 2. Flexor tenosynovectomy. ESTIMATED BLOOD LOSS: Less than 5 cc. TOURNIQUET TIME: 20 minutes. INDICATION FOR PROCEDURE: Michael is a 45-year-old woman who has a history of ___ __. She has sores on the tip of her fingers, but not diagnosed with Buerger's Disease or Raynaud's. A week ago, she developed pain, swelling, and erythema at the tip of her left ring finger. The swelling was so much that she had to have her ring cut off. She has developed necrosis of the tip of the finger just proximal to the DIP flexion crease and an MRI shows osteomyelitis of the distal phalanx and flexor tenosynovitis of the ring finger flexor tendons. She presents for I and D and partial amputation of the left ring finger. DESCRIPTION OF PROCEDURE: The patient was brought to the operating room, was given a sedation anesthetic, and a digital block with 10 cc of 1% plain lidocaine. The skin of her left hand and forearm was prepped and draped in the usual sterile fashion. The hand was elevated and then the tourniquet elevated to 250 mg of mmHg. A fishmouth incision was made at the most distal area that still had well perfused skin. This was at about the level of the proximal aspect of the middle phalanx. Full-thickness skin flaps were made and then there was disarticulation of the middle phalanx. The digital arteries were cauterized and there was purulent material in the flexor tendon sheath. Next, a Chevron incision was made over the A1 jones of the ring finger were dissected bluntly and then on to the flexor tendon sheath. It was opened at the A1 jones and debrided and then irrigated with a 14-gauge IV catheter with copious amounts of saline which ran through the flexor tendon sheath and now at the end of the finger. All of the incisions were irrigated with saline and then the incision of the palm was loosely closed with 4-0 nylon suture and the amputation incision closed also in an interrupted fashion with 4-0 nylon suture. The wounds were dressed with Xeroform 4x4, Webril and Richard wrap. The patient tolerated the procedure well and was brought to the recovery room in good condition. [id number]/[facility] [place] #: [id number] MTDFidel
[2016-10-29] MEDS: Acetaminophen TAB* 325 MG PO PRN (03:22)
[2016-10-29] MEDS: Vancomycin(*) 1,250 MG in NS 0.9% 250 ML* 250 ML IVPB SCH ×3 (04:53→22:59)
[2016-10-29] MEDS: Levothyroxine TAB* 100 MCG TAB PO SCH (06:33)
[2016-10-29] MEDS: Cefepime(*) 2 GM in NS 0.9% 50 ML* 50 ML IVPB SCH ×2 (08:51→21:27)
[2016-10-29] MEDS: Gabapentin CAP(*) 300 MG PO SCH ×2 (08:54→17:26)
[2016-10-29] MEDS: Multivitamins/Minerals TAB PO SCH (08:54)
[2016-10-29] MEDS: Cyanocobalamin TAB* 500 MCG PO SCH (08:54)
[2016-10-29] MEDS: DULoxetine DR CAP* 60 MG CAP.DR PO SCH (08:54)
[2016-10-29] MEDS: Calcium/Vitamin D TAB 250/125* TAB PO SCH (08:55)
--- NOTE | 2016-10-29 08:55 | PN ---
Progress Note - Progress Note SOAP: Subjective: []Patient seen at bedside. Sitting up, comfortable overall with minimal hand/ finger pain. Hoping for PIC line today as the IV is bothersome. Objective: [] Vital Signs Temp 98.0 F 10/29/16 07:16 Pulse 64 10/29/16 07:16 Resp 18 10/29/16 08:00 BP 107/61 10/29/16 07:16 Pulse Ox 98 10/29/16 07:16 Intake & Output 10/28/16 10/29/16 10/29/16 18:59 06:59 18:59 Intake Total 1830 1619 Output Total 1000 550 300 Balance 830 1069 -300 Weight 140 lb Intake: IV Fluids 1280 159 ABX - VANCOMYCIN 280 LR 1000 159 IVPB 50 340 ABX - CEFEPIME 50 73 ABX - VANCOMYCIN 267 Oral 500 1120 Output: Urine 1000 550 300 Other: Estimated Void Large Laboratory Results - last 24 hr 10/28/16 19:48 Vancomycin Trough 10.0 Microbiology 10/27/16 18:15 Aerobic Blood Culture - Preliminary Blood Venous No Growth Day 1 Anaerobic Blood Culture - Preliminary No Growth Day 1 10/27/16 18:15 Aerobic Blood Culture - Preliminary Blood Venous No Growth Day 1 Anaerobic Blood Culture - Preliminary No Growth Day 1 Left hand currently dressed with bulky dressing/marisol No active drainage is noted Assessment: []s/p partial amputation left ring finger I&D Flexor tenosynovitis left hand POD #1 Plan: []For PIC line, IV antibiotic recommendations per Dr. Cunningham Dressing changes per Dr. Leonard
--- NOTE | 2016-10-29 11:37 | PN ---
Progress Note - Progress Note SOAP: Subjective: DOS: 10/29/16 CC: finger infection HPI: 45 year old woman with peripheral neuropathy and left 4th finger infection , developed over the last week, worsening 24 hours before admission. Already had deformity but had swelling, redness and blackening of tip. Had partial amputation 10/28, tolerated it well. No fever, rash, or diarrhea. Had some hip pain which is resolved. Objective: [] Vital Signs Temp 36.7 C 10/29/16 07:16 Pulse 64 10/29/16 07:16 Resp 20 10/29/16 10:54 BP 107/61 10/29/16 07:16 Pulse Ox 98 10/29/16 07:16 Intake & Output 10/28/16 10/29/16 10/29/16 18:59 06:59 18:59 Intake Total 1830 1619 600 Output Total 1000 550 300 Balance 830 1069 300 Weight 140 lb Intake: IV Fluids 1280 159 ABX - VANCOMYCIN 280 LR 1000 159 IVPB 50 340 ABX - CEFEPIME 50 73 ABX - VANCOMYCIN 267 Oral 500 1120 600 Output: Urine 1000 550 300 Other: Estimated Void Large Gen:No distress Neuro: AAOx3, follows all commands Neck:supple Heart;RRR no murmur Lungs:CTA BL Abd:+BS NTND soft Skin: No rash MSK: L hand wrapped LN: no palpable LN Laboratory Results - last 24 hr 10/28/16 19:48 Vancomycin Trough 10.0 Assessment: 1. left 4th ringer finger suppurative tenosynovitis, cellulitis, abscess, acute osteomyelits s/p partial amputation; suspect Staph 2. peripheral neuropathy due to arnold chiari malformation 3. amox allergy Plan: 1. continue vancomycin goal tr 15-20 and cefepime, cultures pending. Will plan on 4 weeks IV as outpatient to cover any proximal osteomyelitis Discussed with Dr Moreno
[2016-10-29] MEDS: Nystatin SUSPENSION* 100000 UNITS/ML 5 ML UDC PO SCH ×3 (13:04→22:58)
--- NOTE | 2016-10-29 17:06 | PN ---
Subjective Date of Service: 10/29/16 Interval History: Pt is feeling well. She denies any significant pain at this time. She states her finger tips are essentially numb related to her chiari malformation (s/p decompression). She states that when she was started on sandostatin she began to notice the skin on her fingertips on the L began to "thin" then started peeling. She lost a fingernail as well. Objective Active Medications: Acetaminophen (Tylenol Tab*) 650 mg PO Q4H PRN PRN Reason: FEVER/PAIN Last Admin: 10/29/16 03:22 Dose: 650 mg Hydrocodone Bitart/Acetaminophen ([place] 5-325 Tab*) 1 tab PO Q4H PRN PRN Reason: PAIN - MILD TO MODERATE Hydrocodone Bitart/Acetaminophen ([place] 5-325 Tab*) 2 tab PO Q4H PRN PRN Reason: PAIN - MODERATE TO SEVERE Last Admin: 10/27/16 23:03 Dose: 2 tab Calcium/Vitamin D (Oscal D Tab 250/125*) 2 tab PO QAM [facility] Last Admin: 10/29/16 08:55 Dose: 2 tab Cyanocobalamin (Vitamin B12 Tab*) 500 mcg PO DAILY [facility] Last Admin: 10/29/16 08:54 Dose: 500 mcg Duloxetine HCl (Cymbalta Cap*) 60 mg PO QAM [facility] Last Admin: 10/29/16 08:54 Dose: 60 mg Gabapentin (Neurontin Cap(*)) 300 mg PO QAM [facility] Last Admin: 10/29/16 08:54 Dose: 300 mg Gabapentin (Neurontin Cap(*)) 900 mg PO QPM [facility] Last Admin: 10/28/16 18:34 Dose: 900 mg Cefepime HCl 2 gm/ Sodium (Chloride) 50 mls @ 100 mls/hr IVPB Q12H [facility] Last Admin: 10/29/16 08:51 Dose: 100 mls/hr Lactated Ringer's (Lactated Ringers 1000 Ml Bag*) 1,000 mls @ 80 mls/hr IV PER RATE [facility] Last Admin: 10/28/16 13:30 Dose: 80 mls/hr Vancomycin HCl 1,250 mg/ (Sodium Chloride) 250 mls @ 166.667 mls/hr IVPB Q8H [facility] Last Admin: 10/29/16 13:04 Dose: 166.667 mls/hr Levothyroxine Sodium (Synthroid Tab*) 200 mcg PO 0600 [facility] Last Admin: 10/29/16 06:33 Dose: 200 mcg Multivitamins/Minerals (Theragran/Minerals Tab*) 1 tab PO DAILY [facility] Last Admin: 10/29/16 08:54 Dose: 1 tab Nystatin (Nystatin Suspension*) 200,000 units PO QID [facility] Last Admin: 10/29/16 13:04 Dose: 200,000 units Omeprazole (Prilosec Cap*) 20 mg PO DAILY PRN PRN Reason: INDIGESTION Ondansetron HCl (Zofran Inj*) 4 mg IV Q4H PRN PRN Reason: NAUSEA Last Admin: 10/28/16 00:17 Dose: 4 mg Pharmacy Consult (Vancomycin Per Pharmacy*) 1 note FOLLOW UP . PRN PRN Reason: PER PROTOCOL Pharmacy Profile Note (Vancomycin Trough Check) 1 note FOLLOW UP 0430 [facility] Stop: 10/30/16 04:59 Vital Signs 10/28/16 10/28/16 10/28/16 17:27 17:30 18:00 Temperature 99.3 F Pulse Rate 72 68 70 Respiratory 16 16 16 Rate Blood Pressure 126/79 127/79 129/75 (mmHg) O2 Sat by Pulse 100 100 96 Oximetry 10/28/16 10/28/16 10/28/16 18:23 18:30 18:34 Temperature 97.7 F 97.7 F Pulse Rate 68 68 Respiratory 16 16 16 Rate Blood Pressure 120/61 120/61 (mmHg) O2 Sat by Pulse 93 93 Oximetry 10/28/16 10/28/16 10/28/16 19:25 20:34 20:49 Temperature 98.0 F 98.1 F Pulse Rate 73 90 Respiratory 16 16 22 Rate Blood Pressure 101/57 102/49 (mmHg) O2 Sat by Pulse 99 96 Oximetry 10/28/16 10/28/16 10/29/16 21:01 22:48 00:53 Temperature 98.2 F 97.9 F Pulse Rate 69 97 Respiratory 16 16 16 Rate Blood Pressure 99/59 110/70 (mmHg) O2 Sat by Pulse 96 94 Oximetry 10/29/16 10/29/16 10/29/16 03:28 07:16 08:00 Temperature 97.3 F 98.0 F Pulse Rate 62 64 Respiratory 16 16 18 Rate Blood Pressure 116/68 107/61 (mmHg) O2 Sat by Pulse 98 98 Oximetry 10/29/16 10/29/16 10/29/16 08:54 10:54 11:42 Temperature 97.9 F Pulse Rate 62 Respiratory 16 20 16 Rate Blood Pressure 113/60 (mmHg) O2 Sat by Pulse 98 Oximetry 10/29/16 15:08 Temperature 98.3 F Pulse Rate 60 Respiratory 20 Rate Blood Pressure 133/79 (mmHg) O2 Sat by Pulse 97 Oximetry Oxygen Devices in Use Now: None Appearance: Middle aged female sitting in a chair, NAD Eyes: No Scleral Icterus Ears/Nose/Mouth/Throat: Mucous Membranes Moist Respiratory: Symmetrical Chest Expansion and Respiratory Effort, Clear to Auscultation Cardiovascular: RRR, No Edema, - - II/ systolic murmur heard best LUSB Abdominal: NL Sounds; No Tenderness; No Distention Extremities: No Clubbing, Cyanosis, - - s/p L 4th finger partial amputation, stump remains mildly erythematous and swollen though the patient state it appears much improved Skin: No Rash or Ulcers, No Nodules or Sclerosis Neurological: Alert and Oriented x 3 Result Diagrams: 10/28/16 06:40 10/27/16 16:55 Additional Lab and Data: Lab Results 10/27/16 10/27/16 10/27/16 Range/Units 16:55 16:55 16:55 WBC 13.1 H (3.5-10.8) 10^3/ul RBC 4.19 (4.0-5.4) 10^6/ul Hgb 12.3 (12.0-16.0) g/dl Hct 37 (35-47) % MCV 88 (80-97) fL MCH 29 (27-31) pg MCHC 33 (31-36) g/dl RDW 12 (10.5-15) % Plt Count 217 (150-450) 10^3/ul MPV 9 (7.4-10.4) um3 Neut % (Auto) 83.9 H (38-83) % Lymph % (Auto) 8.3 L (25-47) % Burnett % (Auto) 6.8 (1-9) % Eos % (Auto) 0.4 (0-6) % Baso % (Auto) 0.6 (0-2) % Absolute Neuts (auto) 11.0 H (1.5-7.7) 10^3/ul Absolute Lymphs (auto) 1.1 (1.0-4.8) 10^3/ul Absolute Monos (auto) 0.9 H (0-0.8) 10^3/ul Absolute Eos (auto) 0 (0-0.6) 10^3/ul Absolute Basos (auto) 0.1 (0-0.2) 10^3/ul Absolute Nucleated RBC 0.01 10^3/ul Nucleated RBC % 0 Sodium 138 (133-145) mmol/L Potassium 3.7 (3.5-5.0) mmol/L Chloride 107 (101-111) mmol/L Carbon Dioxide 28 (22-32) mmol/L Anion Gap 3 (2-11) mmol/L BUN 9 (6-24) mg/dL Creatinine 0.48 L (0.51-0.95) mg/dL Est GFR ( Amer) 180.7 (>60) Est GFR (Non-Af Amer) 140.5 (>60) BUN/Creatinine Ratio 18.8 (8-20) Glucose 92 (70-100) mg/dL Lactic Acid 0.6 (0.5-2.0) mmol/L Calcium 9.2 (8.6-10.3) mg/dL Total Bilirubin 0.50 (0.2-1.0) mg/dL AST 19 (13-39) U/L ALT 15 (7-52) U/L Alkaline Phosphatase 43 (34-104) U/L Total Protein 6.9 (6.4-8.9) g/dL Albumin 3.7 (3.2-5.2) g/dL Globulin 3.2 (2-4) g/dL Albumin/Globulin Ratio 1.2 (1-3) Microbiology and Other Data: Microbiology 10/29/16 17:10 Gram Stain - Final Finger - Ring Left Assess/Plan/Problems-Billing Ms. Mosquera is a 45 yo female with PMHc significant for Arnold-Chiari malformation with neuropathy, Kanchan's thyroiditis, hypoglycemia and RLS who presented to the emergency room with left ring finger swelling and erythema c/w supparative tenosynovitis, cellulitis, abscess and acute osteomyelitis. - Patient Problems (1) Osteomyelitis of finger of left hand Current Visit: Yes Status: Acute Code(s): M86.9 - OSTEOMYELITIS, UNSPECIFIED SNOMED Code(s): 54819495 Comment: -The patient is s/p partial amputation of the L 4th finger for osteomyelitis with supparative tenosynovitis. Cultures so far are negative. Clinically she is improving. Continue vancomycin and cefepime per Dr. Villagran. She will need roasterman IV Abx (4 weeks). (2) Neuropathy Current Visit: Yes Status: Chronic Code(s): G62.9 - POLYNEUROPATHY, UNSPECIFIED SNOMED Code(s): 332534182 Comment: Continue gabapentin and cymbalta. (3) DVT prophylaxis Current Visit: Yes Status: Acute Code(s): BZD6713 - SNOMED Code(s): 176462348 Comment: ambulation (4) Full code status Current Visit: Yes Status: Acute Code(s): Z78.9 - OTHER SPECIFIED HEALTH STATUS SNOMED Code(s): 874380020 Status and Disposition: .
[2016-10-30] MEDS ORDERED: Vancomycin Trough Check NOTE FOLLOW UP SCH (04:30)
[2016-10-30] MEDS: Levothyroxine TAB* 100 MCG TAB PO SCH (05:43)
[2016-10-30] MEDS: Acetaminophen TAB* 325 MG PO PRN (05:43)
[2016-10-30 06:13] LABS: EGFR African American 229.6 (>60); EGFR Non-African American 178.5 (>60); Vancomycin Trough 15.5 mcg/mL
[2016-10-30] MEDS: Vancomycin(*) 1,250 MG in NS 0.9% 250 ML* 250 ML IVPB SCH ×2 (06:19→13:39)
--- NOTE | 2016-10-30 07:55 | PN ---
Progress Note - Progress Note SOAP: Subjective: [45 y/o female s/p partial amputation left ring finger, I&D Flexor tenosynovitis left hand POD #2. Patient reports feeling well, denies pain, + throbbing at times, relieved with pain medication, elevating hand. ] Objective: [General- Well appearing, NAD MSK- Dressing in place, patient eating breakfast, digits 1,2,3,5 with good ROM, pink, well perfused, non-tender. ] Vital Signs Temp 97.6 F 10/30/16 02:55 Pulse 61 10/30/16 02:55 Resp 20 10/30/16 02:55 BP 115/68 10/30/16 02:55 Pulse Ox 96 10/30/16 02:55 Intake & Output 10/29/16 10/30/16 10/30/16 18:59 06:59 18:59 Intake Total 1578 1891 Output Total 1500 2500 Balance 78 -609 Intake: IV Fluids 98 NS (0.9%) 98 IVPB 738 343 ABX - CEFEPIME 53 ABX - VANCOMYCIN 290 LR 738 Oral 840 1450 Output: Urine 1500 2500 Other: Estimated Void Medium Laboratory Results - last 24 hr 10/30/16 05:30 BUN 8 Creatinine 0.39 L Est GFR ( Amer) 229.6 Est GFR (Non-Af Amer) 178.5 Vancomycin Trough 15.5 Assessment: [[45 y/o female s/p partial amputation left ring finger, I&D Flexor tenosynovitis left hand POD #2] Plan: [- Likely D/C today, awaiting cultures, Dr. Villagran following - Follow up with Dr. Noble within 10 days for wound check - Continue pain medication ] Active Medications Generic Name Dose Route Start Last Admin Trade Name Freq PRN Reason Stop Dose Admin Acetaminophen 650 mg 10/27/16 21:53 10/30/16 05:43 Tylenol Tab* PO 650 mg Q4H PRN Administration FEVER/PAIN Hydrocodone Bitart/Acetaminophen 1 tab 10/27/16 21:50 [place] 5-325 Tab* PO Q4H PRN PAIN - MILD TO MODERATE Hydrocodone Bitart/Acetaminophen 2 tab 10/27/16 21:51 10/27/16 23:03 [place] 5-325 Tab* PO 2 tab Q4H PRN Administration PAIN - MODERATE TO SEVERE Calcium/Vitamin D 2 tab 10/28/16 09:00 10/29/16 08:55 Oscal D Tab 250/125* PO 2 tab QAM [facility] Administration Cyanocobalamin 500 mcg 10/28/16 09:00 10/29/16 08:54 Vitamin B12 Tab* PO 500 mcg DAILY [facility] Administration Duloxetine HCl 60 mg 10/28/16 09:00 10/29/16 08:54 Cymbalta Cap* PO 60 mg QAM [facility] Administration Gabapentin 300 mg 10/28/16 09:00 10/29/16 08:54 Neurontin Cap(*) PO 300 mg QAM [facility] Administration Gabapentin 900 mg 10/28/16 18:00 10/29/16 17:26 Neurontin Cap(*) PO 900 mg QPM [facility] Administration Heparin Sodium (Porcine) 0 ml 10/29/16 18:00 10/30/16 06:13 Heparin Flush Picc/Ml/Cvc(*) IV FLUSH Not Given 0600,1800 [facility] Protocol Cefepime HCl 2 gm/ Sodium 50 mls @ 100 mls/hr 10/27/16 20:00 10/29/16 21:27 Chloride IVPB 100 mls/hr Q12H [facility] Administration Vancomycin HCl 1,250 mg/ 250 mls @ 166.667 mls/hr 10/29/16 05:00 10/30/16 06: 19 Sodium Chloride IVPB 166.667 mls/hr Q8H [facility] Administration Levothyroxine Sodium 200 mcg 10/28/16 06:00 10/30/16 05:43 Synthroid Tab* PO 200 mcg 0600 [facility] Administration Multivitamins/Minerals 1 tab 10/28/16 09:00 10/29/16 08:54 Theragran/Minerals Tab* PO 1 tab DAILY [facility] Administration Nystatin 200,000 units 10/29/16 13:00 10/29/16 22:58 Nystatin Suspension* PO 200,000 units QID [facility] Administration Omeprazole 20 mg 10/27/16 18:52 Prilosec Cap* PO DAILY PRN INDIGESTION Ondansetron HCl 4 mg 10/28/16 00:04 10/28/16 00:17 Zofran Inj* IV 4 mg Q4H PRN Administration NAUSEA Pharmacy Consult 1 note 10/27/16 19:43 Vancomycin Per Pharmacy* FOLLOW UP . PRN PER PROTOCOL
[2016-10-30] MEDS ORDERED: NS 0.9% 50 ML* 50 ML ONE (08:26)
[2016-10-30] MEDS: Cefepime(*) 2 GM in NS 0.9% 50 ML* 50 ML IVPB SCH (08:29)
[2016-10-30] MEDS: Multivitamins/Minerals TAB PO SCH (09:26)
[2016-10-30] MEDS: Gabapentin CAP(*) 300 MG PO SCH (09:26)
[2016-10-30] MEDS: Cyanocobalamin TAB* 500 MCG PO SCH (09:26)
[2016-10-30] MEDS: Nystatin SUSPENSION* 100000 UNITS/ML 5 ML UDC PO SCH ×3 (09:27→17:17)
[2016-10-30] MEDS: DULoxetine DR CAP* 60 MG CAP.DR PO SCH (09:27)
[2016-10-30] MEDS: Calcium/Vitamin D TAB 250/125* TAB PO SCH (09:27)
--- NOTE | 2016-10-30 10:36 | ECHO ---
Patient: JANETT STOKES [facility] Rec#: [id number] : 1970 Date: 10/30/2016 Age: 45y Height: 162.6 cm / 64.0 in Weight: 63.5 kg / 140.0 lbs Sex: F BSA: 1.7 Room#: [facility] Admit Date#: 10/27/2016 Type: Inpatient Referring: Mishel Moreno DO Reading: Sam Blank DO [employer] Operator: Shilpa Ansari RN RDCS CC: Luis Bradford MD Transthoracic Echocardiogram Indication: Finger tenosynovitis and osteomyelitis, possible embolic source BP: 115/68 HR: 51 Rhythm: Bradycardia Findings History: Arnold chiari malformation, peripheral neuropathy, Kanchan's thyroiditis, asthma, GERD, hypoglycemia, S/P gastric bypass 2011 Technical Comments: The study quality is fair. Completed at 1005. Left Ventricle: The left ventricular chamber size is normal. There is no left ventricular hypertrophy. Global left ventricular wall motion and contractility are within normal limits.Prominent LV false tendon noted Left ventricular systolic function is at the lower limits of normal. The estimated ejection fraction is 50-55%. Normal left ventricular diastolic filling is observed. Left Atrium: The left atrium is normal in size. Right Ventricle: The right ventricular chamber size and systolic function are within normal limits. Right Atrium: The right atrial cavity size is normal. Aortic Valve: The aortic valve is trileaflet. There is a trace of aortic regurgitation. There is no evidence of aortic stenosis. Mitral Valve: The mitral valve appears normal in structure and function. There is a trace of mitral regurgitation. There is no evidence of mitral stenosis. Tricuspid Valve: The tricuspid valve leaflets are normal. There is trace tricuspid regurgitation. No pulmonary hypertension is noted. There is no tricuspid stenosis. Pulmonic Valve: The pulmonic valve appears normal. There is a trace pulmonic regurgitation. There is no pulmonic stenosis. Pericardium: There is no significant pericardial effusion. Aorta: There is no dilatation of the ascending aorta. There is no dilatation of the aortic arch. The aortic root is normal in size. Pulmonary Artery: The main pulmonary artery appears normal. Venous: The inferior vena cava appears normal in size. There is less than 50% respiratory change in the inferior vena cava dimension. Conclusions The left ventricular chamber size is normal. There is no left ventricular hypertrophy. Global left ventricular wall motion and contractility are within normal limits. Left ventricular systolic function is at the lower limits of normal. The estimated ejection fraction is 50-55%. The left atrium is normal in size. The right ventricular chamber size and systolic function are within normal limits. No significant valvular abnormalities noted. No prior studies available for comparison at time of interpretation. Measurements Name Value Normal Range RVIDd (AP) 2D 2.4 cm (0.9 - 2.6) RVDdMajor (2D) 2.6 cm (2.2 - 4.4) RAd ISD 4CH 4.7 cm (3.4 - 4.9) RA (A4C)W 3.8 cm (2.9 - 4.6) IVSd (2D) 0.8 cm (0.6 - 1) LVPWd (2D) 0.8 cm (0.6 - 1) LVIDd (2D) 5 cm (3.6 - 5.4) LVIDs (2D) 3.7 cm - LV FS (2D) 26 % (25 - 45) Aortic Annulus 2 cm (1.4 - 2.6) Ao root diameter (2D) 2.7 cm (2.1 - 3.5) Ascending Ao 2.5 cm (2.1 - 3.4) Aortic arch 1.8 cm (1.8 - 3.4) LA dimension (AP) 2D 3.5 cm (2.3 - 3.8) LAd ISD 4CH 4.7 cm (2.9 - 5.3) LA ISD 4CH W 4.3 cm (2.5 - 4.5) Name Value Normal Range LA ESV SP 4CH (A/L) 54 ml - LA ESV SP 2CH (A/L) 63 ml - LA ESV BP (A/L) 60 ml - LA ESV BP (A/L) index 35.9 ml/m2 - LA ESV SP 4CH (MOD) 51 ml - LA ESV SP 2CH (MOD) 59 ml - Name Value Normal Range MV E-wave Vmax 1 m/sec - MV deceleration time 238 msec - MV A-wave Vmax 0.77 m/sec - MV E:A ratio 1.4 ratio - LV septal e' Vmax 0.1 m/sec - LV lateral e' Vmax 0.11 m/sec - LV E:e' septal ratio 10 ratio - LV E:e' lateral ratio 9.1 ratio - Name Value Normal Range AV Vmax 1.6 m/sec - AV VTI 43.2 cm - AV peak gradient 10 mmHg - AV mean gradient 5 mmHg - LVOT Vmax 1 m/sec - LVOT VTI 28.1 cm - LVOT peak gradient 4 mmHg - LVOT mean gradient 2 mmHg - Name Value Normal Range TR Vmax 2.1 m/sec - TR peak gradient 18 mmHg - RAP 8 mmHg - RVSP 26 mmHg - IVC diameter 1.8 cm - Name Value Normal Range PV Vmax 0.69 m/sec -
--- NOTE | 2016-10-30 13:54 | PN ---
Progress Note - Progress Note SOAP: Subjective: DOS 10/30/16 CC: finger infection HPI: 45 year old woman with peripheral neuropathy and left 4th finger infection , developed over the last week, worsening 24 hours before admission. Already had deformity but had swelling, redness and blackening of tip. Had partial amputation 10/28, tolerated it well. Feels well. Minimal drainage on dressings. Objective: [] Vital Signs Temp 36.7 C 10/30/16 07:18 Pulse 61 10/30/16 07:18 Resp 16 10/30/16 09:26 BP 125/78 10/30/16 07:18 Pulse Ox 98 10/30/16 07:18 Intake & Output 10/29/16 10/30/16 10/30/16 18:59 06:59 18:59 Intake Total 1578 1891 Output Total 1500 2500 450 Balance 78 -609 -450 Intake: IV Fluids 98 NS (0.9%) 98 IVPB 738 343 ABX - CEFEPIME 53 ABX - VANCOMYCIN 290 LR 738 Oral 840 1450 Output: Urine 1500 2500 450 Other: Estimated Void Medium Medium Estimated Stool Amount Large Gen:No distress Neuro: AAOx3, follows all commands Neck:supple Heart;RRR no murmur Lungs:CTA BL Abd:+BS NTND soft Skin: No rash MSK: L hand proximal 4th finger erythema, incision intact no drainage, no fluctuance LN: no palpable LN Laboratory Results - last 24 hr 10/30/16 05:30 BUN 8 Creatinine 0.39 L Est GFR ( Amer) 229.6 Est GFR (Non-Af Amer) 178.5 Vancomycin Trough 15.5 Microbiology 10/29/16 17:10 Gram Stain - Final Finger - Ring Left Wound Culture - Preliminary Staphylococcus Aureus 10/29/16 17:10 Anaerobic Culture - Preliminary Wound - Finger No Growth Day 1 10/27/16 18:15 Aerobic Blood Culture - Preliminary Blood Venous No Growth Day 2 Anaerobic Blood Culture - Preliminary No Growth Day 2 Blood Culture - Final 10/27/16 18:15 Aerobic Blood Culture - Preliminary Blood Venous No Growth Day 2 Anaerobic Blood Culture - Preliminary No Growth Day 2 Blood Culture - Final Assessment: 1. left 4th ringer finger suppurative tenosynovitis, cellulitis, abscess, acute osteomyelits s/p partial amputation; suspect Staph 2. peripheral neuropathy due to arnold chiari malformation 3. amox allergy Plan: 1. continue vancomycin goal tr 15-20; 1500 mg IV Q12hrs, 6 weeks IV as outpatient to cover any proximal osteomyelitis. Orders written for abx and weekly cbc, cmp, crp, vanco trough to start on Wednesday. Will fu Staph results and modify abx if needed next week. She will call if fever, rash, diarrhea, worsening infection. FU qith al 1-2 weeks. 25 minutes floor time >50% face to face in discussion of treatment of her infection and possible side effects and monitoring.
[2016-10-30 16:12] VITALS: BP 117/65
--- NOTE | 2016-10-30 16:50 | PN ---
Subjective Date of Service: 10/30/16 Interval History: Pt is feeling well. She is anxious to go home. She denies any significant pain at this time. Objective Active Medications: Acetaminophen (Tylenol Tab*) 650 mg PO Q4H PRN PRN Reason: FEVER/PAIN Last Admin: 10/30/16 05:43 Dose: 650 mg Hydrocodone Bitart/Acetaminophen ([place] 5-325 Tab*) 1 tab PO Q4H PRN PRN Reason: PAIN - MILD TO MODERATE Hydrocodone Bitart/Acetaminophen ([place] 5-325 Tab*) 2 tab PO Q4H PRN PRN Reason: PAIN - MODERATE TO SEVERE Last Admin: 10/27/16 23:03 Dose: 2 tab Calcium/Vitamin D (Oscal D Tab 250/125*) 2 tab PO QAM [facility] Last Admin: 10/30/16 09:27 Dose: 2 tab Cyanocobalamin (Vitamin B12 Tab*) 500 mcg PO DAILY [facility] Last Admin: 10/30/16 09:26 Dose: 500 mcg Duloxetine HCl (Cymbalta Cap*) 60 mg PO QAM [facility] Last Admin: 10/30/16 09:27 Dose: 60 mg Gabapentin (Neurontin Cap(*)) 300 mg PO QAM [facility] Last Admin: 10/30/16 09:26 Dose: 300 mg Gabapentin (Neurontin Cap(*)) 900 mg PO QPM [facility] Last Admin: 10/29/16 17:26 Dose: 900 mg Heparin Sodium (Porcine) (Heparin Flush Picc/Ml/Cvc(*)) 0 ml IV FLUSH 0600, 1800 [facility] PRN Reason: Protocol Last Admin: 10/30/16 16:25 Dose: 1 ml Vancomycin HCl 1,250 mg/ (Sodium Chloride) 250 mls @ 166.667 mls/hr IVPB Q8H [facility] Last Admin: 10/30/16 13:39 Dose: 166.667 mls/hr Levothyroxine Sodium (Synthroid Tab*) 200 mcg PO 0600 [facility] Last Admin: 10/30/16 05:43 Dose: 200 mcg Multivitamins/Minerals (Theragran/Minerals Tab*) 1 tab PO DAILY [facility] Last Admin: 10/30/16 09:26 Dose: 1 tab Nystatin (Nystatin Suspension*) 200,000 units PO QID [facility] Last Admin: 10/30/16 13:39 Dose: 200,000 units Omeprazole (Prilosec Cap*) 20 mg PO DAILY PRN PRN Reason: INDIGESTION Ondansetron HCl (Zofran Inj*) 4 mg IV Q4H PRN PRN Reason: NAUSEA Last Admin: 10/28/16 00:17 Dose: 4 mg Pharmacy Consult (Vancomycin Per Pharmacy*) 1 note FOLLOW UP . PRN PRN Reason: PER PROTOCOL Vital Signs 10/29/16 10/29/16 10/29/16 17:26 19:17 19:26 Temperature 97.9 F Pulse Rate 82 Respiratory 16 16 16 Rate Blood Pressure 125/66 (mmHg) O2 Sat by Pulse 99 Oximetry 10/29/16 10/29/16 10/29/16 20:08 21:35 23:32 Temperature 97.9 F 97.8 F Pulse Rate 82 69 Respiratory 16 16 20 Rate Blood Pressure 125/66 113/58 (mmHg) O2 Sat by Pulse 99 94 Oximetry 10/30/16 10/30/16 10/30/16 02:55 07:18 08:00 Temperature 97.6 F 98.1 F Pulse Rate 61 61 Respiratory 20 16 16 Rate Blood Pressure 115/68 125/78 (mmHg) O2 Sat by Pulse 96 98 Oximetry 10/30/16 10/30/16 10/30/16 09:26 11:24 16:08 Temperature 97.5 F 97.8 F Pulse Rate 57 70 Respiratory 16 16 16 Rate Blood Pressure 118/69 117/65 (mmHg) O2 Sat by Pulse 100 98 Oximetry Oxygen Devices in Use Now: None Appearance: Middle aged female sitting in a chair, NAD Eyes: No Scleral Icterus Ears/Nose/Mouth/Throat: Mucous Membranes Moist Respiratory: Symmetrical Chest Expansion and Respiratory Effort, Clear to Auscultation Cardiovascular: NL Sounds; No Murmurs; No JVD, RRR, No Edema Abdominal: NL Sounds; No Tenderness; No Distention Extremities: No Clubbing, Cyanosis Skin: No Rash or Ulcers, No Nodules or Sclerosis, - - surgical wound not inspected today Neurological: Alert and Oriented x 3 Result Diagrams: 10/28/16 06:40 10/30/16 05:30 Additional Lab and Data: Lab Results 10/27/16 10/27/16 10/27/16 Range/Units 16:55 16:55 16:55 WBC 13.1 H (3.5-10.8) 10^3/ul RBC 4.19 (4.0-5.4) 10^6/ul Hgb 12.3 (12.0-16.0) g/dl Hct 37 (35-47) % MCV 88 (80-97) fL MCH 29 (27-31) pg MCHC 33 (31-36) g/dl RDW 12 (10.5-15) % Plt Count 217 (150-450) 10^3/ul MPV 9 (7.4-10.4) um3 Neut % (Auto) 83.9 H (38-83) % Lymph % (Auto) 8.3 L (25-47) % Iron % (Auto) 6.8 (1-9) % Eos % (Auto) 0.4 (0-6) % Baso % (Auto) 0.6 (0-2) % Absolute Neuts (auto) 11.0 H (1.5-7.7) 10^3/ul Absolute Lymphs (auto) 1.1 (1.0-4.8) 10^3/ul Absolute Monos (auto) 0.9 H (0-0.8) 10^3/ul Absolute Eos (auto) 0 (0-0.6) 10^3/ul Absolute Basos (auto) 0.1 (0-0.2) 10^3/ul Absolute Nucleated RBC 0.01 10^3/ul Nucleated RBC % 0 Sodium 138 (133-145) mmol/L Potassium 3.7 (3.5-5.0) mmol/L Chloride 107 (101-111) mmol/L Carbon Dioxide 28 (22-32) mmol/L Anion Gap 3 (2-11) mmol/L BUN 9 (6-24) mg/dL Creatinine 0.48 L (0.51-0.95) mg/dL Est GFR ( Amer) 180.7 (>60) Est GFR (Non-Af Amer) 140.5 (>60) BUN/Creatinine Ratio 18.8 (8-20) Glucose 92 (70-100) mg/dL Lactic Acid 0.6 (0.5-2.0) mmol/L Calcium 9.2 (8.6-10.3) mg/dL Total Bilirubin 0.50 (0.2-1.0) mg/dL AST 19 (13-39) U/L ALT 15 (7-52) U/L Alkaline Phosphatase 43 (34-104) U/L Total Protein 6.9 (6.4-8.9) g/dL Albumin 3.7 (3.2-5.2) g/dL Globulin 3.2 (2-4) g/dL Albumin/Globulin Ratio 1.2 (1-3) Microbiology and Other Data: Microbiology 10/29/16 17:10 Gram Stain - Final Finger - Ring Left Assess/Plan/Problems-Billing Ms. Mosquera is a 45 yo female with PMHc significant for Arnold-Chiari malformation with neuropathy, Kanchan's thyroiditis, hypoglycemia and RLS who presented to the emergency room with left ring finger swelling and erythema c/w supparative tenosynovitis, cellulitis, abscess and acute osteomyelitis. - Patient Problems (1) Osteomyelitis of finger of left hand Current Visit: Yes Status: Acute Code(s): M86.9 - OSTEOMYELITIS, UNSPECIFIED SNOMED Code(s): 52104006 Comment: The patient is s/p partial amputation of the L 4th finger for osteomyelitis with supparative tenosynovitis. Cultures grew S aureus. Clinically she is improving. Continue vancomycin per Dr. Villagran-he will likely change Abx early next week. She will need halfway IV Abx (6 weeks). Follow up with Dr. Noble in 10 days. Echo done and did not reveal an embolic source. (2) Neuropathy Current Visit: Yes Status: Chronic Code(s): G62.9 - POLYNEUROPATHY, UNSPECIFIED SNOMED Code(s): 908782979 Comment: Continue gabapentin and cymbalta. (3) DVT prophylaxis Current Visit: Yes Status: Acute Code(s): WRL0808 - SNOMED Code(s): 015895495 Comment: ambulation (4) Full code status Current Visit: Yes Status: Acute Code(s): Z78.9 - OTHER SPECIFIED HEALTH STATUS SNOMED Code(s): 832726933 Status and Disposition: .
--- NOTE | 2016-10-31 00:03 | DS ---
DISCHARGE SUMMARY: DATE OF ADMISSION: 10/27/16 DATE OF DISCHARGE: 10/30/16 PRIMARY CARE PROVIDER: MARLON Castro ORTHOPEDIST: Dr. Leonard. PRINCIPAL DIAGNOSIS: Left fourth finger suppurative tenosynovitis with acute osteomyelitis, abscess, and cellulitis. SECONDARY DIAGNOSES: 1. Kanchan's thyroiditis. 2. History of Arnold-Chiari malformation, status post decompression with bilateral hand neuropathy. 3. Hypoglycemia. 4. Restless legs syndrome. 5. Gastroesophageal reflux disease. DISCHARGE MEDICATIONS: 1. Cymbalta 60 mg p.o. daily. 2. Glucosamine and chondroitin 1 tab p.o. daily. 3. Calcium plus D 1 tab p.o. daily. 4. Gabapentin 300 mg p.o. q.a.m., 900 mg p.o. q.p.m. 5. Vitamin B12 500 mcg SL daily. 6. Omeprazole 20 mg p.o. daily p.r.n. GERD. 7. Levothyroxine 200 mcg p.o. daily. 8. Multivitamin 1 tab p.o. daily. 9. Vancomycin 1500 mg IV q.12 hours x6 weeks. 10. Nystatin suspension 2000 units p.o. four times a day swish and spit x5 more days. 11. Clifford 5/325 one to two tabs p.o. q.4 hours p.r.n. pain. HOSPITAL COURSE: Ms. Mosquera is a 45-year-old female who has a history of Arnold - Chiari malformation, status post decompression with resultant hand neuropathy , presents to the emergency room with complaints of left fourth finger swelling , pain, and redness. This developed quite quickly. She stated that she pulled a hangnail from where the nail had fallen off her left ring finger and approximately 3 days later, hand became swollen and slightly pink around the nail bed. Over the past 2 days, she had been unable to strain her fingers on the left. She was started on doxycycline and Keflex as an outpatient. She presented to the ER due to worsening of the symptoms. In the ER, the patient was found to have elevated white blood cell count of 13.1. The patient was admitted for tenosynovitis. The patient was seen in consultation by Dr. Villagran who felt that the patient had acute suppurative tenosynovitis of the left fourth finger as well as cellulitis, abscess, and acute osteomyelitis. It was felt that staph was the most likely organism in this rapidly progressive infection. The patient was then seen in consultation by Dr. Leonard, who took the patient for partial amputation on 10/28/16. The patient has done well since partial amputation. As of 10/29/16, the remaining digit was still slightly erythematous and swollen; however, the patient states it much improved from prior. The patient's culture ultimately grew Staph aureus. The patient has been started on vancomycin per Dr. Villagran and we will continue on this for now. Given the culture of the patient, antibiotic regimen will likely be modified early next week by Dr. Villagran. The patient has been taught how to administer home IV antibiotics and will continue this over the next 6 weeks. The patient will need CBC, CMP, and CRP weekly with results to Dr. Villagran. Additionally, she will need to follow up with Dr. Villagran in the next 1 to [address] Noble in approximately 10 days. FOLLOWUP CONCERNS: The patient is being discharged home today, 10/30/16. She is to follow up with Dr. Noble in approximately 10 days; MARLON Castro, on 11/05/16, at 2:30 p.m.; with Dr. Villagran in the next 1 to 2 weeks. ACTIVITY LEVEL: As tolerated. DIET: Regular. CONDITION ON DISCHARGE: Stable. TIME SPENT: Thirty five minutes was spent discharging this patient. CC: MARLON Castro; Dr. Leonard; Dr. Villagran * [id number]/[facility] #: [id number] [facility]
== END 2016-10-30 17:00 | disposition home or self-care (01) | DRG 316 ==
LOC: ED 15:01 → SSU 18:29
PROVIDERS: ADMIT Hospitalist; ATTEND Hospitalist
PROC: 0LB80ZZ Excision of Left Hand Tendon, Open Approach (ICD-10-PCS; 2016-10-28)
PROC: 02HV33Z Insertion of Infusion Device into Superior Vena Cava, Percutaneous Approach (ICD-10-PCS; 2016-10-28)
PROC: 0X6T0Z2 Detachment at Left Ring Finger, Mid, Open Approach (ICD-10-PCS; principal; 2016-10-28 16:30)
DX: M65.842 Other synovitis and tenosynovitis, left hand (principal); M86.142 Other acute osteomyelitis, left hand; E06.3 Autoimmune thyroiditis; Q07.00 Arnold-Chiari syndrome without spina bifida or hydrocephalus; E16.2 Hypoglycemia, unspecified; G25.81 Restless legs syndrome; K21.9 Gastro-esophageal reflux disease without esophagitis; L03.012 Cellulitis of left finger; B95.61 Methicillin susceptible Staphylococcus aureus infection as the cause of diseases classified elsewhere; Z79.899 Other long term (current) drug therapy; Z83.3 Family history of diabetes mellitus; Z82.49 Family history of ischemic heart disease and other diseases of the circulatory system; Z80.1 Family history of malignant neoplasm of trachea, bronchus and lung; Z98.84 Bariatric surgery status; Z91.048 Other nonmedicinal substance allergy status
CPT/HCPCS: 36415; 73140; 80053; 80202; 82565; 83605; 84520; 85025; 87040; 87070; 87073; 87077; 87186; 87205; 87640; 87641; 88305; 88311; 93306; A9270-GY; C1751; J0692; J0744; J2001; J2250; J2270; J2405; J3010; J3370

== ENCOUNTER 2017-01-05 18:13 | Inpatient (IN) | payer BC ==
[2017-01-05] MEDS ORDERED: HYDROmorphone* 1 MG/ML 1 ML SYR IV SLOW PU ONE (19:47)
[2017-01-05] MEDS ORDERED: Ondansetron INJ* 2 MG/ML VIAL IV ONE (19:48)
[2017-01-05] MEDS ORDERED: NS 0.9% 1000 ML* 1,000 ML IV SCH (20:15)
[2017-01-05] MEDS ORDERED: Lidocaine 2% PF * 5 ML VIAL ONE (20:26)
[2017-01-05] MEDS ORDERED: Succinylcholine* 20 MG/ML 10 ML VIAL ONE (20:26)
[2017-01-05] MEDS ORDERED: Ketorolac INJ* 30 MG/ML 1 ML VIAL ONE (20:26)
[2017-01-05] MEDS ORDERED: Propofol* 10 MG/ML 20 ML BTL IV PUSH ONE (20:26)
[2017-01-05] MEDS ORDERED: Famotidine IV* 10 MG/ML 2 ML (20 mg) ONE (20:26)
[2017-01-05] MEDS ORDERED: HYDROmorphone* 1 MG/ML 1 ML SYR ONE ×3 (20:26→22:52)
[2017-01-05] MEDS ORDERED: Dexamethasone IV* 4 MG/ML 1 ML (4 MG) ONE (20:26)
[2017-01-05] MEDS ORDERED: Ondansetron INJ* 2 MG/ML VIAL ONE (20:26)
[2017-01-05] MEDS ORDERED: fentaNYL* 50 MCG/ML 2 ML VIAL (100 MCG VIAL) ONE ×2 (20:27→20:46)
[2017-01-05] MEDS ORDERED: Midazolam* 1 MG/ML 5 ML VIAL (5 MG) ONE (20:27)
--- NOTE | 2017-01-05 20:27 | ED ---
Anibal Rea Billy, scribed for Danielle Flood MD on 01/05/17 at 1955 . Abdominal Pain/Female - HPI Summary HPI Summary: Patient is a 46 year-old female who was transferred from [facility] from [place] for evaluation of abdominal pain and hernia repair. She is here in the ED with her . Pt is s/p gastric bypass several years ago. Pt has had internal hernia x [address] Matos. Pt states she was doing well until noon today when sudden, severe pain. Pt states has nausea, belching but no vomiting. Pt with mild flatus. No fever, chills. pt was given fentanyl with little improvement of pain so then Dilaudid with short term relief. Pt had a CT scan revealing a hernia. Pt was tranferred for surgical eval. PSHx is significant for gastric bypass in [address] Matos, internal hernia repair x 2 Pt with left ring finger osteomyelitis -had an partial amputation and 1 month of IV abx - completed course end of November Records from [place] ED reviewed. All medications were reviewed this visit. - History of Current Complaint Chief Complaint: EDAbdPain Stated Complaint: TRANSFER FROM [facility] Time Seen by Provider: 01/05/17 19:39 Hx Obtained From: Patient, Family/Business Solution Analyst, Medical Records Onset/Duration: Sudden Onset, Lasting Hours, Still Present Timing: Constant Severity Initially: Moderate Severity Currently: Moderate Pain Intensity: 7 Pain Scale Used: 0-10 Numeric Location: Epigastric Radiates: No Character: Sharp, Cramping Aggravating Factor(s): Nothing Alleviating Factor(s): Medications Associated Signs and Symptoms: Negative: Nausea, Vomiting, Diarrhea Allergies/Adverse Reactions: Allergies Allergy/AdvReac Type Severity Reaction Status Date / Time Amoxicillin [From Augmentin] Allergy Vomiting Verified 01/05/17 18:41 Clavulanic Acid Allergy Vomiting Verified 01/05/17 18:41 [From Augmentin] Codeine Allergy HALLUCINATIONS, Verified 01/05/17 18:41 VOMITING, FEVER Oxycodone Allergy Dizziness Verified 01/05/17 18:41 Sulfamethoxazole Allergy Hives Verified 01/05/17 18:41 w/Trimethoprim [From Septra] MRI CONTRAST Allergy RINGING IN Uncoded 01/05/17 18:41 EARS, DIFF BREATHING PMH/Surg Hx/FS Hx/Imm Hx Previously Healthy: No Endocrine/Hematology History: Reports: Hx Thyroid Disease - HYPOTHYROID, Other Endocrine/Hematological Disorders - hypoglycemia Denies: Hx Diabetes Cardiovascular History: Denies: Hx Congestive Heart Failure, Hx Hypertension, Hx Pacemaker/ICD, Other Cardiovascular Problems/Disorders Respiratory History: Reports: Hx Asthma - UNDER CONTROL, NO INHALER RECENTLY Denies: Other Respiratory Problems/Disorders GI History: Reports: Hx Gastroesophageal Reflux Disease - DIET CONTROLLED, TUMS PRN, Other GI Disorders - Reccurent internal hernia History: Denies: Hx Renal Disease Musculoskeletal History: Reports: Other Musculoskeletal History - osteomyelitis left 4th ring finger with amputation Sensory History: Reports: Hx Auditory Problems Denies: Hx Contacts or Glasses, Hx Hearing Aid Opthamlomology History: Denies: Hx Contacts or Glasses Neurological History: Reports: Hx Seizures, Other Neuro Impairments/Disorders - HX OF CHIARI MALFORMATION Psychiatric History: Denies: Hx Panic Disorder - Surgical History Surgery Procedure, Year, and Place: GASTRIC BYPASS GOLDEN-EN-Y, X2, POSTERIOR FOSSA DECOMPRESSION FRO CHIARI MALFORMATION, LEFT ULAR NERVE DECOMPRESSION, BILATERAL CARPAL TUNNEL, BICEP TENDON/ROTATOR CUFF REPAIR, UTERINE ABLATION, TUBAL LIGATION. left 4th ring finger partial ambulation Hx Anesthesia Reactions: No Infectious Disease History: No Infectious Disease History: Denies: Traveled Outside the [place] in Last 30 Days - Family History Known Family History: Positive: Cardiac Disease, Diabetes - Social History Lives: With Family Alcohol Use: None Hx Substance Use: No Substance Use Type: Reports: None Hx Tobacco Use: No Smoking Status (MU): Never Smoked Tobacco Review of Systems Constitutional: Negative Eyes: Negative ENT: Negative Cardiovascular: Negative Respiratory: Negative Positive: Abdominal Pain. Negative: Vomiting, Diarrhea, Nausea Genitourinary: Negative Musculoskeletal: Negative Skin: Negative Neurological: Negative Psychological: Normal All Other Systems Reviewed And Are Negative: Yes Physical Exam Triage Information Reviewed: Yes Vital Signs On Initial Exam: Initial Vitals Temp Pulse Resp BP Pulse Ox 99.3 F 55 22 108/48 100 01/05/17 18:39 01/05/17 18:39 01/05/17 18:39 01/05/17 18:39 01/05/17 18:39 Vital Signs Reviewed: Yes Appearance: Positive: Well-Appearing, Pain Distress Skin: Positive: Warm, Skin Color Reflects Adequate Perfusion, Dry Eyes: Positive: Conjunctiva Clear ENT: Positive: Hearing grossly normal Neck: Positive: Supple, Nontender, No Lymphadenopathy Respiratory/Lung Sounds: Positive: Clear to Auscultation, Breath Sounds Present Cardiovascular: Positive: Normal, RRR Abdomen Description: Positive: Soft, Other:. Negative: Nontender - + signicant tenderness epigastric, LUQ decreased BS Bowel Sounds: Positive: Hypoactive Musculoskeletal: Positive: Normal, Strength/ROM Intact Neurological: Positive: Normal, Alert, Oriented to Person Place, Time Psychiatric: Positive: Normal AVPU Assessment: Alert - [place] Coma Scale Best Eye Response: 4 - Spontaneous Best Motor Response: 6 - Obeys Commands Best Verbal Response: 5 - Oriented Coma Scale Total: 15 Diagnostics - Vital Signs Vital Signs Temp Pulse Resp BP Pulse Ox 01/05/17 18:39 99.3 F 55 22 108/48 100 - Laboratory Result Diagrams: 01/05/17 20:10 01/05/17 20:10 Lab Statement: Any lab studies that have been ordered have been reviewed, and results considered in the medical decision making process. Abdominal Pain Fem Course/Dx - Course Course Of Treatment: Pt with h/o gastric bypass surgery and recurrent internal hernia. pt transferred from OSH with recurrent hernia. Pt is obvious discomfort. Will contact Dr. Matos- surgeon learning operations specialist, analgeia. second IV. npo. antiemetic. CT uploaded - Diagnoses Provider Diagnoses: Internal hernia, Abdominal pain - Provider Notifications Discussed Care Of Patient With: Dr. Matos (surgery) at 1956: will see patient in the ED. Instructed by Provider To: Admit As Inpatient Discharge - Discharge Plan Condition: Fair Disposition: ADMITTED TO [facility] The documentation as recorded by the Anibal valdez Billy accurately reflects the service I personally performed and the decisions made by , Danielle Flood MD.
[2017-01-05] MEDS ORDERED: Bupivacaine 0.5% W/EPI SDV* 30 ML VIAL ONE (20:29)
[2017-01-05 20:33] LABS: Hematocrit 41 % (35-47); Hemoglobin 13.5 g/dl (12.0-16.0); Mean Corpuscular HGB Conc 33 g/dl (31-36); Mean Corpuscular Hemoglobin 28 pg (27-31); Mean Corpuscular Volume 85 fL (80-97); Mean Platelet Volume 9 um3 (7.4-10.4); Red Cell Distribution Width 13 % (10.5-15); White Blood Count 16.2 10^3/ul (3.5-10.8)
[2017-01-05 20:49] LABS: Albumin 3.9 g/dL (3.2-5.2); BUN/Creatinine Ratio 15.7 (8-20); Calcium 8.7 mg/dL (8.6-10.3); EGFR African American 167.7 (>60); EGFR Non-African American 130.4 (>60); Globulin 2.9 g/dL (2-4); Magnesium 1.8 mg/dL (1.9-2.7); Potassium 3.8 mmol/L (3.5-5.0); Total Bilirubin 0.6 mg/dL (0.2-1.0); Total Protein 6.8 g/dL (6.4-8.9)
[2017-01-05] MEDS ORDERED: ceFAZolin 2 GM PREMIX(*) 2 GM/50 ML BAG IVPB ONE (20:50)
[2017-01-05] MEDS ORDERED: Rocuronium* 10 MG/ML VIAL ONE (21:31)
[2017-01-05] MEDS ORDERED: Meperidine SYRINGE* 50 MG/ML ONE (22:52)
[2017-01-05] MEDS ORDERED: Ondansetron INJ* 2 MG/ML VIAL IV PRN ×2 (23:25→23:28)
[2017-01-05] MEDS ORDERED: DiMENhydriNATE IV* 50 MG/ML VIAL IV PUSH PRN (23:28)
[2017-01-05] MEDS ORDERED: fentaNYL* 50 MCG/ML 2 ML VIAL (100 MCG VIAL) IV PRN (23:28)
[2017-01-05] MEDS ORDERED: Scopolamine 1.5 mg* PATCH TRANSDERM PRN (23:28)
[2017-01-05] MEDS ORDERED: PROCHLORPERAZINE INJ 5 MG/ML 2 ML VIAL IV PRN (23:28)
[2017-01-05] MEDS ORDERED: HYDROmorphone* 1 MG/ML 1 ML SYR IV PRN (23:28)
[2017-01-05] MEDS ORDERED: diPHENhydraMINE IV* 25 MG in NS 0.9% 50 ML* 50 ML IVPB PRN (23:31)
--- NOTE | 2017-01-05 23:34 | SURGPN ---
Brief Operative Note - Surgery Procedures: PREOP/POSTOP DX: INTERNAL HERNIA, S/P GASTRIC BYPASS PROC: ATTEMPTED LAP/OPEN REDUCTION AND REPAIR OF INTERNAL HERNIA SURG: MECENAS ASSIST: HERON PACK: CRISPIN TORRES EBL: 50 ML IVF: CRYSTALLOID SPEC: NONE DRAIN: NONE COMPL: NONE COND: STABLE TO RR. FINDINGS: RETROALIMENTARY LIMB INTERNAL HERNIA
[2017-01-06] MEDS ORDERED: diPHENhydraMINE IV* 50 MG/ML 1 ml VIAL (BENADRYL) IV PRN (00:57)
[2017-01-06] MEDS: Ketorolac INJ* 30 MG/ML 1 ML VIAL IV PRN ×2 (02:52→17:40)
[2017-01-06] MEDS: HYDROmorphone* 1 MG/ML 1 ML SYR IV PRN ×2 (06:33→11:53)
--- NOTE | 2017-01-06 10:33 | PN ---
Progress Note - Progress Note SOAP: Subjective: Pain from incision but not severe. No N/V/flatus. Discussed findings at surgery. Patient reports desire to advance diet but concern about post-gastric bypass surgery hypoglycemia/late dumping syndrome. Objective: Vital Signs Temp 98.7 F 01/06/17 08:16 Pulse 68 01/06/17 08:16 Resp 16 01/06/17 08:34 BP 93/46 01/06/17 08:16 Pulse Ox 97 01/06/17 08:34 NAD abd: dressings c/d/i; ND; soft; tender. Intake & Output 01/05/17 01/06/17 01/06/17 18:59 06:59 18:59 Intake Total 3446 Output Total 800 300 Balance 2646 -300 Weight 140 lb 140 lb Intake: IV Fluids 3446 LR 2411 NS 50ML, Cefazolin 2G 50 Oral 0 Output: Urine 300 Lboo 800 Laboratory Results - last 24 hr 01/05/17 01/05/17 01/05/17 20:10 20:10 20:10 WBC 16.2 H RBC 4.80 Hgb 13.5 Hct 41 MCV 85 MCH 28 MCHC 33 RDW 13 Plt Count 218 MPV 9 Neut % (Auto) 91.6 H Lymph % (Auto) 4.6 L Navarro % (Auto) 3.6 Eos % (Auto) 0 Baso % (Auto) 0.2 Absolute Neuts (auto) 14.8 H Absolute Lymphs (auto) 0.8 L Absolute Monos (auto) 0.6 Absolute Eos (auto) 0 Absolute Basos (auto) 0 Absolute Nucleated RBC 0.01 Nucleated RBC % 0.1 Sodium 135 Potassium 3.8 Chloride 105 Carbon Dioxide 22 Anion Gap 8 BUN 8 Creatinine 0.51 Est GFR ( Amer) 167.7 Est GFR (Non-Af Amer) 130.4 BUN/Creatinine Ratio 15.7 Glucose 127 H Lactic Acid 1.8 Calcium 8.7 Magnesium 1.8 L Total Bilirubin 0.60 AST 37 ALT 34 Alkaline Phosphatase 35 Total Protein 6.8 Albumin 3.9 Globulin 2.9 Albumin/Globulin Ratio 1.3 Blood Type Antibody Screen Antibody Identification Direct Antiglob Test 01/05/17 20:10 WBC RBC Hgb Hct MCV MCH MCHC RDW Plt Count MPV Neut % (Auto) Lymph % (Auto) Navarro % (Auto) Eos % (Auto) Baso % (Auto) Absolute Neuts (auto) Absolute Lymphs (auto) Absolute Monos (auto) Absolute Eos (auto) Absolute Basos (auto) Absolute Nucleated RBC Nucleated RBC % Sodium Potassium Chloride Carbon Dioxide Anion Gap BUN Creatinine Est GFR ( Amer) Est GFR (Non-Af Amer) BUN/Creatinine Ratio Glucose Lactic Acid Calcium Magnesium Total Bilirubin AST ALT Alkaline Phosphatase Total Protein Albumin Globulin Albumin/Globulin Ratio Blood Type O Negative Antibody Screen Positive Antibody Identification Anti-D Direct Antiglob Test Negative Assessment: POD#0-1 s/p exlap/reduction and repair of incarcerated internal hernia/voluvulus Plan: Advance diet as tolereated. Given post-bypass hypoglycemia (late dumping) will need very low carb diet (advised to avoid starches). Cont IV pain meds. Home 1 -2 days likely.
--- NOTE | 2017-01-06 12:52 | OP ---
DATE OF OPERATION: 01/05/17 - ROOM #332 DATE OF : 72 SURGEON: Raul Matos MD GRADE AND CENTER MARKER: Dr. Alves ANESTHESIOLOGIST: Dr. Patrick ANESTHESIA: General endotracheal. PRE-OPERATIVE DIAGNOSIS: Recurrent internal hernia with volvulus, status post gastric bypass. POST-OPERATIVE DIAGNOSIS: Recurrent internal hernia with volvulus, status post gastric bypass. OPERATIVE PROCEDURE: Attempted laparoscopy, laparotomy and open reduction and repair of internal hernia. ESTIMATED BLOOD LOSS: 50 mL. IV FLUIDS: Crystalloid. SPECIMEN: None. DRAINS: None. COMPLICATIONS: None. COUNTS: The instrument, needle, and sponge counts were correct. DESCRIPTION OF PROCEDURE: The patient was brought to the operating room and placed on the table supine. Sequential compression devices were placed on both lower extremities. General anesthesia was administered and Lobo catheter was placed. She was positioned and padded appropriately. She was prepped and draped in the usual sterile fashion. She received appropriate antibiotics. Time-out was performed. Local anesthetic was infiltrated into the skin and soft tissue prior to making each incision. A curvilinear infraumbilical incision was created in an open technique, used to access the peritoneal cavity. Then, a 12-mm trocar was placed and carbon dioxide was insufflated to a pressure 15 mmHg. Laparoscope was introduced and there was noted to be dilated colon in the left upper quadrant with ischemic- appearing loops of small bowel and there appeared to be obvious volvulus of the small intestine. Additional 5-mm trocars were placed in the supraumbilical midline and in the right lower quadrant. Inspection revealed the cecum to be in the right lower quadrant as expected and the terminal ileum was identified. Attempts were made to reduce the volvulus by running the bowel proximally from the terminal ileum; however, the volvulus was unable to be reduced in this fashion. Inspection of the gastrojejunal anastomosis was performed and the Errol limb was identified and this was traced down and attempts to try to reduce the volvulus by traction on the Errol limb were unsuccessful as well. Despite repositioning the patient and numerous attempts, there was no ability to work the bowel free. Ultimately, it was decided to perform the laparotomy. Midline laparotomy was created and peritoneal cavity was entered. There was still great difficulty in reducing the volvulus, and therefore, the laparotomy was extended further superiorly and inferiorly, and the inspection revealed that the volvulus seemed to be from right to left of the entire small bowel through the retroalimentary limb, and then subsequently there appeared to be an additional volvulus of the small bowel upon itself. The untwisting of the bowel was eventually completed by tracing the ileum through the left side of the abdomen identifying the volvulus, small bowel, and untwisting this before finally reducing the internal hernia. Subsequently, the bowel was returned to the abdominal cavity and after several minutes, it did appear all to be pink and viable. In order to repair the defect in the retroalimentary space, 2-0 silk was used to pursestring the peritoneum from the Errol limb mesentery starting at the small bowel side, running this down to the base of the mesentery and then up along the transverse colon mesentery and then this was tied down with good decrease in the defect. In order to further secure the peritoneum on the left side, additional suture was used to secure the small bowel mesentery to the transverse colon mesentery and additionally three more sutures on the right side. Inspection of the jejunal anastomosis revealed that there was no defect at this site. Subsequently, copious lavage of the abdomen was performed until clear and the midline wound was closed with #1 Polysorb running. Skin incisions were closed with oswaldo and dressings applied. The patient tolerated the procedure well, was extubated and transferred to Recovery in stable condition. CC: Luis Bradford MD, [place], [place] * [id number]/[facility] #: [id number] MTDD
[2017-01-06] MEDS: Acetaminophen TAB* 325 MG PO PRN ×2 (16:25→21:23)
[2017-01-06] MEDS ORDERED: LR @ 40 MLS/HR IV ONE (17:30)
[2017-01-07] MEDS: Ketorolac INJ* 30 MG/ML 1 ML VIAL IV PRN (03:15)
[2017-01-07] MEDS: Acetaminophen TAB* 325 MG PO PRN (06:20)
[2017-01-07 11:40] VITALS: BP 112/52
[2017-01-08] MEDS ORDERED: Scopolomine PATCH Remove* 1 NOTE MISC PATCH OFF ONE (23:29)
== END 2017-01-07 13:25 | disposition home or self-care (01) | DRG 223 ==
LOC: ED 18:13 → OR 20:58 → SSU 01-06 00:47
PROVIDERS: ADMIT Surgery; ATTEND Surgery
PROC: 0WJP4ZZ Inspection of Gastrointestinal Tract, Percutaneous Endoscopic Approach (ICD-10-PCS; 2017-01-05)
PROC: 0DS90ZZ Reposition Duodenum, Open Approach (ICD-10-PCS; 2017-01-05)
PROC: 0DSB0ZZ Reposition Ileum, Open Approach (ICD-10-PCS; 2017-01-05)
PROC: 0DSA0ZZ Reposition Jejunum, Open Approach (ICD-10-PCS; 2017-01-05)
PROC: 0WQF0ZZ Repair Abdominal Wall, Open Approach (ICD-10-PCS; principal; 2017-01-05 20:25)
DX: K46.0 Unspecified abdominal hernia with obstruction, without gangrene (principal); K91.1 Postgastric surgery syndromes; K21.9 Gastro-esophageal reflux disease without esophagitis; G25.81 Restless legs syndrome; E06.3 Autoimmune thyroiditis; Z98.84 Bariatric surgery status; Z89.022 Acquired absence of left finger(s); E03.9 Hypothyroidism, unspecified; J45.909 Unspecified asthma, uncomplicated; H91.90 Unspecified hearing loss, unspecified ear; Z98.51 Tubal ligation status; Z82.49 Family history of ischemic heart disease and other diseases of the circulatory system; Z83.3 Family history of diabetes mellitus; Y83.2 Surgical operation with anastomosis, bypass or graft as the cause of abnormal reaction of the patient, or of later complication, without mention of misadventure at the time of the procedure; E16.2 Hypoglycemia, unspecified
CPT/HCPCS: 36415; 80053; 83605; 83735; 85025; 86850; 86870; 86880; 86900; 86901; 94760; A9270-GY; J0330; J0690; J1100; J1170; J1885; J2250; J2405; J2704; J3010